=== PATIENT | male | born 1940 | race Caucasian/White ===

== ENCOUNTER 2016-07-05 17:43 | Inpatient (IN) | payer MEDICARE ==
[~2016-07-05] VITALS: Ht 185.4 cm; Wt 129.3 kg
[~2016-07-05 17:43] MED LIST: ASPIRIN EC81 M1 PO; BRILINTA90 MG PO; BROVANA15 MCG/2 M INH; BYSTOLIC10 MG PO; CALAN SR240 MG PO; COMBIVENT RESPIM4 GM INH; COZAAR50 MG PO; DIABETA5 MG PO; EFFIENT10 MG PO; ELIQUIS5 MG PO; FLOMAX0.4 MG PO; GLIPIZIDE10 MG PO; GLUCOPHAGE1000 MG PO; KLOR-CON M2020 MEQ PO; LANOXIN250 MCG PO; LASIX20 MG PO; LASIX40 MG PO; LEVEMIR100 U/M1 SC; LEVEMIR100 U/M1 SQ; MELATONIN 3 MG1 TAB PO; METOLAZONE5 MG PO; NEURONTIN 300300 MG PO; NEURONTIN600 MG PO; NITROSTAT0.4 MG SL; PERCOCET 10/3251 TA1 PO; PRAVACHOL20 MG PO; PREVACID30 MG; PREVACID30 MG PO; PROSCAR5 MG PO; PULMICORT0.5 MG/21 UPD; SINGULAIR10 MG PO; SYNTHROID300 MCG PO; VERAPAMIL HCL40 MG PO; Zaroxolyn PO
[2016-07-05 18:36] LABS: BASOPHILS 0.2 % (0.0-2.0); EOSINOPHILS 3.2 % (0-7); HEMOGLOBIN 9.9 g/dL (13.5-17.5); IMMATURE GRANULOCYTES 1.3 % (0-5); LYMPHOCYTES 10.6 % (15-50); MCH 24.4 pg (26.0-34.0); MCV 81.3 fL (80.0-100.0); MEAN PLATELET VOLUME 10.4 fL (7.4-10.4); MONOCYTES 10.6 % (2-11); NEUTROPHILS 74.1 % (40-80); PLATELET COUNT 102 10x3/uL (130-400); RBC 4.06 10x6/uL (4.20-6.10); RDW 18.2 % (11.5-14.5); WBC 5.4 10x3/uL (4.8-10.8)
[2016-07-05 18:57] LABS: ALBUMIN 2.9 g/dL (3.4-5.0); ANION GAP 11.1 mmol/L (8-16); BILIRUBIN - TOTAL 0.32 mg/dL (0.2-1.3); CALCIUM 8.8 mg/dL (8.5-10.1); CARBON DIOXIDE 30.1 mmol/L (21.0-32.0); CREATININE - SERUM 1.1 mg/dL (0.6-1.3); POTASSIUM - SERUM 5.2 mmol/L (3.5-5.1)
--- NOTE | 2016-07-05 22:51 | NUR ---
RECEIVED TO 2124 FROM ER VIA WHEELCHAIR, AAOX3, SKIN WARM AND DRY, RESP UNLABORED, IV PATENT TO LEFT AC, O2@3LNC, AT BEDSIDE, NO DISTRESS NOTED
[2016-07-05] MEDS ORDERED: CALAN SR240 MG PO (23:07)
[2016-07-05] MEDS ORDERED: CATAPRES0.1 MG PO (23:10)
[2016-07-06] VITALS: BP 193/99
--- NOTE | 2016-07-06 00:45 | NUR ---
VERY ANXIOUS AND UPSET, BP ELEVATED 199/99, DR RUBEN GARVIN
--- NOTE | 2016-07-06 00:59 | NUR ---
PT IN BED WATCHING TELEVISION, ANXIOUS ABOUT GETTING MEDICATIONS PER SPECIALTY DEVELOPMENT CONSULTANT, NO S&S OF ACUTE DISTRESS NOTED. PT SILENT AND RESTING UPON ENTERING ROOM. USING HOME CPAP UNIT WITH 3L O2. BED LOW AND LOCKED, CALL LIGHT IN REACH, WILL CONTINUE TO MONITOR.
--- NOTE | 2016-07-06 02:30 | NUR ---
UNABLE TO REACH DR MIRANDA, ER DR DOUGLASS NOTIFIED AND ORDERS RECIEVED FOR HOME BP MEDS AND ATIVAN FOR ANXIETY
--- NOTE | 2016-07-06 03:15 | NUR ---
MEDICATIONS GIVEN FOR BP AND ANXIETY, WILL MONITOR
[2016-07-06 03:26] VITALS: BP 193/99; BMI 37.6
[2016-07-06 05:11] LABS: BASOPHILS 0.2 % (0.0-2.0); EOSINOPHILS 2.7 % (0-7); HEMATOCRIT 31.1 % (42.0-54.0); HEMOGLOBIN 9.4 g/dL (13.5-17.5); IMMATURE GRANULOCYTES 1.2 % (0-5); LYMPHOCYTES 8.6 % (15-50); MCH 24.2 pg (26.0-34.0); MCHC 30.2 g/dL (31.0-37.0); MCV 80.2 fL (80.0-100.0); MEAN PLATELET VOLUME 10.6 fL (7.4-10.4); MONOCYTES 11.9 % (2-11); NEUTROPHILS 75.4 % (40-80); PLATELET COUNT 100 10x3/uL (130-400); RBC 3.88 10x6/uL (4.20-6.10); RDW 17.9 % (11.5-14.5); WBC 5.2 10x3/uL (4.8-10.8)
[2016-07-06 05:28] LABS: CALC OSMOLALITY 274 mosm/kg (275-300); CALCIUM 8.7 mg/dL (8.5-10.1); CARBON DIOXIDE 30.1 mmol/L (21.0-32.0); CHLORIDE - SERUM 98 mmol/L (98-107); POTASSIUM - SERUM 5.3 mmol/L (3.5-5.1); SODIUM 134 mmol/L (136-145); UREA NITROGEN 19 mg/dL (7-18); eGFR NON AFRICAN AMERICAN 77 mL/min (90-120)
[2016-07-06 05:32] LABS: GLUCOSE 193 mg/dL (74-106)
--- NOTE | 2016-07-06 06:43 | NUR ---
RESTING QUIETLY IN BED, NO DISTRESS NOTED
--- NOTE | 2016-07-06 07:41 | NUR ---
FARZANEH INFORMED OF BLOOD SUGAR. HE REFUSES HUMALOG. STATES THAT HE BECOMES SYMPTOMATIC FOR HYPOGLYCEMIA IF HIS SUGARS GET DOWN IN THE 120'S. HE WANTS ONLY THE LEVIMER.
--- NOTE | 2016-07-06 07:50 | NUR ---
PATIENT IS AWAKE AND ALERT, SITTING UP HI FOWLERS IN HIS BED, AT THE BEDSIDE. HE STATE STHAT HE "HAD A ROUGH NIGHT". HE IS ABLE TO MAKE HIS IMMEDIATE NEEDS KNOWN. ASSESSMENT COMPLETE, HE HAS PITTING EDEMA TO BLE, MORE PRONOUNCED ON THE LEFT SIDE. 3+ PITTING EDEMA IN THE LEFT FOOT. GENERALIZED EDEMA NOTED IN BUE. HE IS PASTY WITH DIMINISHED LUNG SOUNDS IN THE LOWER 2 THIRDS OF EACH LUNG. HE HAS BEEN WEARING THE CPAP WHILE ASLEEP.
--- NOTE | 2016-07-06 08:00 | NUR ---
850CC OF URINE EMPTIED FROM HIS URINALS. IT IS BRIGHT YELLOW. HE IS ANXIOUS TO KNOW HIS PLAN FOR THE DAY. BREAKFAST HAS BEEN DELIVERED AND HE IS LESS ANXIOUS ABOUT HIS IMMEDIATE NEEDS. CHANGED HIS PILLOW CASES AND THE PINK PAD UNDER HIM. THEY ARE WET WITH PERSPIRATION. TURNED HIS AIR DOWN. HE STATES THAT THESE SWEATS ARE NORMAL FOR HIM.
[2016-07-06 08:31] VITALS: BP 114/75
--- NOTE | 2016-07-06 08:34 | NUR ---
PATIENT KELP GATHERER LIGHT REQUESTING URINALS EMPTIED AND ADJUSTMENTS FOR COMFORT. HE IS ON 3 LITERS O2 AND STATES THAT HE MAY NEED TO BE PLACED ON CPAP SOON.
--- NOTE | 2016-07-06 09:53 | NUR ---
PATIENT RESTING EITH CPAP ON WHEN I ENTER. LIGHTS OUT. HE AWOKE EASILY TO MY ENTRY. ORAL MEDICATIONS DISCUSSED PREPARED. HE TOOK THEM WITHOUT RESERVATIONS. WILL GIVE LEVIMIRE WHEN AVAILABLE FROM PHARMACY
--- NOTE | 2016-07-06 11:24 | NUR ---
PATIENT SITTING UP IN BID HI FOWLERS. NC INFUSING O2 AT 3LPM. MEDICATION TAKEN AFTER EXPLANATION FOR ANNITA. STATES THAT HE DOES SUFFER FROM CHRONIC CONSTIPATION.
[2016-07-06 11:42] VITALS: BP 168/95
[2016-07-06 13:01] VITALS: Ht 185.4 cm; Wt 129.3 kg
--- NOTE | 2016-07-06 15:27 | NUR ---
RATIONALE FOR SCD'S EXPLAINED. REFUSED SCD'S
[2016-07-06 15:51] VITALS: BP 122/66; BP 128/68
--- NOTE | 2016-07-06 18:40 | NUR ---
FARZANEH SITTING UP IN THE BEDSIDE CHAIR. LINENS COMPLETELY CHANGED. HIS IV TO THE LEFT AC REMAINS PATENT TO SALINE FLUSH.
[2016-07-06 19:00] VITALS: BP 136/65
--- NOTE | 2016-07-06 19:03 | NUR ---
SITTING UP IN CHAIR AT BEDSIDE, AAOX3, SKIN WARM AND DRY, RESP UNLABORED, IV PATENT TO LEFT AC, O2@3LNC, NO DISTRESS NOTED, AT BEDSIDE
[2016-07-07] VITALS (13 sets, daily range): BP systolic 113–170; BP diastolic 59–82
--- NOTE | 2016-07-07 01:52 | NUR ---
PT SLEEPING. HAD AN IV RESITED THIS NIGHT, 4TH TRY SUCCESSFUL WITH 22G CATHETER IN THE RIGHT FOREARM, FLUSHING WELL AND NO SIGNS OF INFILTRATION NOTED. DRESSING ADHERED TO SKIN AND SWAB CAP IN PLACE. PT USING HOME CPAP MACHINE WITH 3L O2 CONNECTED. NO S&S OF DISTRESS NOTED AT THIS TIME, UNLABORED BREATHING. BED LOW AND LOCKED, CALL LIGHT IN REACH. WILL CONTINUE TO MONITOR.
[2016-07-07 06:49] LABS: BASOPHILS 0 % (0.0-2.0); EOSINOPHILS 0 % (0-7); HEMATOCRIT 31.5 % (42.0-54.0); HEMOGLOBIN 9.7 g/dL (13.5-17.5); IMMATURE GRANULOCYTES 1.6 % (0-5); LYMPHOCYTES 7.3 % (15-50); MCH 24.6 pg (26.0-34.0); MCHC 30.8 g/dL (31.0-37.0); MCV 79.7 fL (80.0-100.0); MEAN PLATELET VOLUME 11.1 fL (7.4-10.4); MONOCYTES 4.5 % (2-11); NEUTROPHILS 86.6 % (40-80); PLATELET COUNT 107 10x3/uL (130-400); RBC 3.95 10x6/uL (4.20-6.10); RDW 17.9 % (11.5-14.5); WBC 4.4 10x3/uL (4.8-10.8)
[2016-07-07 07:14] LABS: APTT 33.8 SECONDS (22.8-39.4); INR 1.08 (0.85-1.17); PROTIME 13.9 SECONDS (11.6-15.0)
[2016-07-07 07:19] LABS: BILIRUBIN - TOTAL 0.5 mg/dL (0.2-1.3); CALCIUM 8.6 mg/dL (8.5-10.1); CARBON DIOXIDE 31.1 mmol/L (21.0-32.0); CHOL - HDL RATIO 3.2 ratio (2.3-4.9); CREATININE - SERUM 1.2 mg/dL (0.6-1.3); MAGNESIUM - SERUM 1.3 mg/dL (1.8-2.4); POTASSIUM - SERUM 5.1 mmol/L (3.5-5.1); PROTEIN - SERUM 7.5 g/dL (6.4-8.2); THYROID STIMULATING HORMONE 1.25 uIU/mL (0.36-3.74)
--- NOTE | 2016-07-07 08:00 | NUR ---
INTRODUCED MYSELF TO PT PRIMARY RN FOR TODAYS SHIFT. PT IS ALERT AND ORIENTED RESTING QUIETLY IN BED WITH AT BEDSIDE. PT CURRENTLY NPO FOR PROCEDURE LATER TODAY. SHIFT ASSESSMENT COMPLETED. RR NONLABORED WITH NC @3L IN PLACE. R.FA PIV WITH MONICA CDI AND SWAB CAPS IN USE. EMPTIED BEDSIDE URINAL OF 325ML CLEAR YELLOW URINE. PT DENIES ANY FURTHER NEEDS AT THIS TIME. CL IN REACH. WILL CPOC.
--- NOTE | 2016-07-07 09:13 | CN ---
PATIENT NAME:ANTONIO LOPEZ MEDICAL RECORD: [id number] : 40 LOCATION:. D.2125 ADMIT DATE: 07/05/16 ACCOUNT: [id number] CONSULTING PHYSICIAN: DALE MASTERS MD REFERRING PHYSICIAN: ARAVIND CR MD DATE OF CONSULTATION: 07/06/2016 CONSULT REQUESTING PHYSICIAN: Aravind Cr MD REASON FOR CONSULTATION: Right-sided pleural effusion and pneumonia. HISTORY OF PRESENT ILLNESS: Mr. Lopez is a 75-year-old gentleman who has worsening shortness of breath. He was seen in the [facility]. Chest x-ray was done and he was told that he needs to be hospitalized. He denies any fever or chill. There are no night sweats. He has chest pain when he coughs, especially on the right side. He also hears himself wheezing. He has worsening swelling of the lower extremities. There is also some orthopnea and PND. The patient does have a history of obstructive sleep apnea. He is using his CPAP machine regularly. PAST MEDICAL HISTORY: 1. COPD. 2. Obstructive sleep apnea. 3. History of sarcoidosis. 4. History of coronary artery disease. 5. History of atrial fibrillation. 6. Congestive heart failure with diastolic dysfunction. 7. History of pneumonia. 8. History of right-sided pleural effusion status post thoracentesis. ALLERGIES: HE IS ALLERGIC TO SOTALOL, PLAVIX, DEMEROL, PNEUMOCOCCAL VACCINE AND COUMADIN. PRESENT MEDICATIONS: On Elias Borges Ur[employer]ch is reviewed. PERSONAL AND SOCIAL HISTORY: The patient has history of smoking more than [id number]. He is a nondrinker. FAMILY HISTORY: Noncontributory. PHYSICAL EXAMINATION: GENERAL: Now, the patient is lying comfortably in bed. He is not in acute distress. VITAL SIGNS: The blood pressure is 168/95, pulse is 77, respirations 18, temperature 98.4, and SPO2 is 98% on 3 liters nasal cannula. HEENT: Conjunctivae pink, sclerae nonicteric. NECK: Supple, no JVD. CHEST: Excursion is minimal on both sides. There are decreased breath sounds on the right side, dullness on percussion. There are also crackles. HEART: Rate and rhythm regular, normal sound, no murmur. ABDOMEN: Soft. Bowel sounds present. No hepatosplenomegaly. RECTAL: Deferred. EXTREMITIES: No cyanosis, no clubbing. There are 2+ pedal edema. SKIN: Warm, normal turgor. CENTRAL NERVOUS SYSTEM: The patient is awake and alert. There is no obvious CONSULT REPORT [id number] ANTONIO LOPEZ cranial nerve abnormality. The gait was not tested. CHEST RADIOGRAPH: There is right-sided pleural effusion. Possible underlying infiltrate. LABORATORY DATA: CBC: WBC 5.2, hemoglobin 9.4, hematocrit 31.1, the platelet count is 100. Chemistry: Sodium 134, potassium 4.3, BUN is 19, creatinine is 1. The BNP 2759. IMPRESSION: 1. Acute exacerbation of chronic obstructive pulmonary disease. 2. Right-sided pleural effusion, possible parapneumonic. 3. Congestive heart failure with diastolic dysfunction. 4. Obstructive sleep apnea on CPAP. 5. History of atrial fibrillation. 6. History of sarcoidosis diagnosed years ago and that is on remission. 7. History of coronary artery disease. 8. History of hypertension. RECOMMENDATION: 1. Continue his Zaroxolyn and Bumex. Supplemental oxygen. Continue Levaquin. I will add Rocephin. Start on Brovana/budesonide nebulizer. Continue albuterol/ipratropium nebulizer. 2. Methylprednisolone IV. 3. We will check the decubitus film on the right. If there is significant pleural fluid will proceed with thoracentesis. The labs and order has been ordered for thoracentesis. Dr. Cr, once again thanks for involving me in the care of Mr. Lopez. TRANSINT:[id number] Voice Confirmation ID: [id number] DOCUMENT ID: [id number] DALE MASTERS MD at 0913 CC: ARAVIND CR MD [id number] DICTATION DATE: 07/06/16 1443 CARRIAGE FEEDER: 07/06/16 1508 ADM IN [id number] [place] [address]
--- NOTE | 2016-07-07 09:30 | NUR ---
PT LEAVING FOR PROCEDURE WITH IR STAFF. WILL CTM.
--- NOTE | 2016-07-07 10:30 | NUR ---
PT BACK IN ROOM FROM THORENCENTESIS. DRSG TO R.FLANK CDI. VSS AND BEING RECORDED PER PROTOCOL. PT DENIES ANY CURRENT PAIN OR NEEDS. CL IN REACH, AT BEDSIDE. WILL CPOC.
--- NOTE | 2016-07-07 11:28 | NUR ---
FSBS 348. PT REC'D 20 UNITS PER SS INSULIN. PT RESTING WITH AT BEDSIDE. RR NONLABORED WITH NC @2L IN PLACE. PT WANTING TO GET SOME REST AND HAVE HIS CPAP ON. ASSISTED PT WITH IT. PT NOW RESTING QUIETLY WITH MAG INFUSING VIA R.FA PIV. DRSG CDI AND SWAB CAPS IN USE. NO FURTHER NEEDS NOTED AT THIS TIME. CL IN REACH. WILL CTM.
[2016-07-07 12:35] LABS: PROTEIN - BODY FLUID 3.3 G/DL
--- NOTE | 2016-07-07 14:20 | NUR ---
INITIATED PTS IVPB ROCEPHIN. INFUSING OVER 30MINS VIA R.FA PIV. DRSG CDI AND SWAB CAPS IN USE. EMPTIED BEDSIDE URINAL OF 325ML CLEAR YELLOW VOID. PT VOICED THANKS AND DENIES ANY FURTHER NEEDS AT THIS TIME. CL IN REACH. WILL CPOC.
[2016-07-07 14:26] LABS: LYMPH - BF 67 %; MACROPHAGES BF 16 %; MESOTHELIALS BF 1 %; NEUT - BF 16 %
--- NOTE | 2016-07-07 16:00 | NUR ---
PT RESTING QUIETLY IN BED WITH EYES CLOSED. RR NONLABORED WITH NC @3L IN PLACE. NO S/S OF DISTRESS OR ANY CURRENT NEEDS NOTED AT THIS TIME. CL IN REACH. WILL CPOC.
--- NOTE | 2016-07-07 17:12 | NUR ---
PT PULLED OUT HIS R.FA PIV. INSERTED NEW 22 GUAGE X3 ATTEMPTS. NEW IV IN HIS L.HAND. DRSG CDI AND SWAB CAPS IN USE. PT IS SITTING UP EATING HIS DINNER TRAY. FSBS 398 AND PT REC'D 24 UNITS PER SS INSULIN. PT RESTING AND DENIES ANY FURTHER NEEDS AT THIS TIME. CL IN REACH, BED IN LOWEST, SIDE RAILS X2. WILL CPOC.
--- NOTE | 2016-07-07 19:35 | NUR ---
RESUMED CARE OF PT, LYING IN BED RESPIRATIONS EVEN AND UNLABORED ON 3LPM VIA NC. LEFT HAND SALINE LOCKED. CALL LIGHT IN REACH. NO NEEDS NOTED AT THIS TIME. AT BEDSIDE. SEE NURSE ASSESSMENT. WILL CONTINUE TO MONITOR.
[2016-07-08] VITALS: BP 165/76
--- NOTE | 2016-07-08 01:30 | NUR ---
LYING IN BED, CALL LIGHT IN REACH. WILL CONTINUE WITH PLAN OF CARE.
[2016-07-08 04:00] VITALS: BP 145/74
--- NOTE | 2016-07-08 05:22 | NUR ---
AM MEDS PASSED, NO CHANGES FROM PREVIOUS ASSESSMENT. FSBS OBTAINED PER PT REQUEST 290. REFUSES HUMALOG AT THIS TIME, STATES "I'M ALREADY TAKING LEVEMIR, GLIPIZIDE, AND METFORMIN. I DON'T LIKE TAKING HUMALOG, IT MAKES ME NERVOUS." TEACHING ON NEED FOR HUMALOG DUE TO SOLUMEDROL. STATES HE DOESN'T WANT IT THIS MORNING.
[2016-07-08 05:58] LABS: BASOPHILS 0 % (0.0-2.0); EOSINOPHILS 0 % (0-7); HEMATOCRIT 32.8 % (42.0-54.0); HEMOGLOBIN 10.2 g/dL (13.5-17.5); IMMATURE GRANULOCYTES 0.5 % (0-5); LYMPHOCYTES 4.2 % (15-50); MCH 24.7 pg (26.0-34.0); MCHC 31.1 g/dL (31.0-37.0); MCV 79.4 fL (80.0-100.0); MEAN PLATELET VOLUME 11.1 fL (7.4-10.4); MONOCYTES 6.5 % (2-11); NEUTROPHILS 88.8 % (40-80); PLATELET COUNT 125 10x3/uL (130-400); RBC 4.13 10x6/uL (4.20-6.10); RDW 17.6 % (11.5-14.5)
[2016-07-08 06:02] LABS: WBC 8.2 10x3/uL (4.8-10.8)
[2016-07-08 06:40] LABS: ALBUMIN 2.9 g/dL (3.4-5.0); BILIRUBIN - TOTAL 0.36 mg/dL (0.2-1.3); CALCIUM 9.1 mg/dL (8.5-10.1); CARBON DIOXIDE 31.9 mmol/L (21.0-32.0); CREATININE - SERUM 1.3 mg/dL (0.6-1.3); PHOSPHOROUS 4.3 mg/dL (2.5-4.9); POTASSIUM - SERUM 4.9 mmol/L (3.5-5.1); PROTEIN - SERUM 7.7 g/dL (6.4-8.2)
[2016-07-08 06:42] LABS: MAGNESIUM - SERUM 1.8 mg/dL (1.8-2.4)
--- NOTE | 2016-07-08 07:26 | NUR ---
INTRODUCED MYSELF TO PT A PRIMARY RN FOR TODAYS SHIFT. PT IS ALERT AND RESTING QUIETLY IN BED WATCHING TV AND RECIEVING BREATHING TX. RR NONLABORED WITH NC @2L IN PLACE. PT STATES HE SLEPT WELL AND IS FEELING ALRIGHT THIS AM. COMPLAINS OF SLIGHT SORE THROAT SO I PROVIDED HIM WITH SOME COUGH DROPS. PT VOICED THANKS. PT HAS L.HAND PIV WITH DRSG CDI AND SWAB CAPS IN USE. PT HAS A R.FLANK DRSG CDI NO S/S OF HEMATOMA OR BLEEDING NOTED. PT DENIES ANY CURRENT PAIN OR NEEDS. CL IN REACH. WILL CPOC.
[2016-07-08 08:00] VITALS: BP 144/68
--- NOTE | 2016-07-08 11:35 | NUR ---
FSBS 444. TREATED PT WITH 28UNITS OF SS INSULIN. ORDERED A STAT SERUM GLUCOSE AND WILL CONTINUE TO MONITER CLOSELY. PT HAS BEEN REFUSING HIS SS INSULIN FROM ANY OTHER WORKERS. I ENCOURAGED HIM TO TAKE IT ORDERED BUT HE STATES "I DONT TRUST THEM" PT IS VERY WEARY ABOUT TAKING HUMALOG AND DROPPING HOWEVER PT IS CONSTANTLY HIGH.
[2016-07-08 12:00] VITALS: BP 149/51
--- NOTE | 2016-07-08 13:04 | NUR ---
Patient Name: ANTONIO LOPEZ Admission Status: ER Accout number: [id number] Admission Date: 07-05-2016 : 1940 Admission Diagnosis:ACUTE ON CHRONIC DIASTOLIC (CONGESTIVE) HEART FAILURE Attending: GEORGE Current LOS: 3 Anticipated DC Date: 07-09-2016 Planned Disposition: Home with Home Health Primary Insurance: HUMANA CHOICE PPO MCR ADVANT Discharge Planning Comments: CM MET WITH PATIENT AND (MARGAUX) REGARDING D/C NEEDS AND PLANS. PATIENT STATED THERE ARE 5 STEPS W/RAILS TO ENTER HOME AND NO STAIRS INSIDE. PATIENT IS INDEPENDENT WITH HIS CARE AND HAS A WALKER, WHEELCHAIR, OXYGEN, PORTABLE O2, BS COMMODE, AND SHOWER CHAIR AT HOME. PATIENTS PCP IS DR. MIRANDA AND PHARMACY IS [facility]. PATIENT HAS NOT HAD HOME HEALTH BEFORE BUT HAS SIGNED THE [employer] FORM FOR [facility]. [facility] DOES NOT HAVE A CONTRACT WITH [facility] UNTIL July AND PATIENT AND AGREE TO WAIT UNTIL THE FOR HOME HEALTH. [facility] IS AWARE THAT PATIENT WANTS THEM AND WILL CALL THEM ON THE TO SET UP AN APPOINTMENT. REFERRAL WILL BE SENT. CM WILL CONTINUE TO FOLLOW PATIENT WITH D/C NEEDS AND PLANS. PCP DR. RUBEN ARBOLEDA [facility] [phone] CAROL () [phone] OR [phone] Stonemason: Meseret Martinez Is the patient Alert and Oriented? Yes 0 * How many steps to enter\exit or inside your home? 5 W/RAILS 0 * PCP DR. MIRANDA 0 * Pharmacy [facility] 0 * Preadmission Environment Home with Family 0 * ADLs Independent 0 * Equipment Bedside Commode Nebulizer Oxygen Shower Chair Walker Wheelchair 0 * List name and contact numbers for known caregivers / representatives who currently or will assist patient after discharge: MARGAUX () [phone] OR [phone] * Community resources currently utilized None 0 * Additional services required to return to the preadmission environment? Yes 0 * Can the patient safely return to the preadmission environment? Yes 0 * Has this patient been hospitalized within the prior 30 days at any hospital? No 0 Grand Total: 0
--- NOTE | 2016-07-08 13:53 | NUR ---
INITIATED IVPB ROCEPHIN INFUSING VIA L.HAND PIV TO BE INFUSED OVER 30 MINS. PT DENIES ANY CURRENT PAIN OR FURTHER NEEDS. CL IN REACH. PT RESTING QUIETLY IN BED WITH CPAP ON. WILL CPOC.
[2016-07-08 16:00] VITALS: BP 137/56
--- NOTE | 2016-07-08 16:44 | NUR ---
FSBS 290. PT REC'D 16UNITS OF SS INSULIN. PT REQUESTED AND PROVIDED WITH PRN PAIN MEDICATION FOR NECK/BACK ALL OVER PAIN. PT SITTING UP IN BED RESTING QUIETLY WAITING ON HIS DINNER TRAY. NO FURTHER NEEDS AT THIS TIME. CL IN REACH. WILL CPOC.
[2016-07-08 19:10] LABS: AFB SPECIMEN PROCESSING Concentration (())
--- NOTE | 2016-07-08 20:00 | NUR ---
PT RESTING IN BED. ALERT/ORIENTED. O2 @ 2L/NC WITH NONLABORED RESPIRATIONS. SLAINE LOCK TO LEFT HAND. DRESSING TO RIGHT FLANK FROM THORACENTESIS ON TUESDAY. ASSESSMENT COMPLETED. REVIEW PLAN OF CARE.
[2016-07-08 21:18] VITALS: BP 134/70
[2016-07-09 01:12] VITALS: BP 152/75
[2016-07-09 05:01] VITALS: BP 130/78
[2016-07-09 06:05] LABS: ANION GAP 11.1 mmol/L (8-16); CALCIUM 9.5 mg/dL (8.5-10.1); CARBON DIOXIDE 34.4 mmol/L (21.0-32.0); CREATININE - SERUM 1.3 mg/dL (0.6-1.3); POTASSIUM - SERUM 4.5 mmol/L (3.5-5.1)
[2016-07-09 06:06] LABS: BASOPHILS 0 % (0.0-2.0); EOSINOPHILS 0 % (0-7); HEMATOCRIT 33.3 % (42.0-54.0); HEMOGLOBIN 10.1 g/dL (13.5-17.5); IMMATURE GRANULOCYTES 0.7 % (0-5); LYMPHOCYTES 6.3 % (15-50); MCH 24.1 pg (26.0-34.0); MCHC 30.3 g/dL (31.0-37.0); MCV 79.5 fL (80.0-100.0); MEAN PLATELET VOLUME 10.3 fL (7.4-10.4); MONOCYTES 10.9 % (2-11); NEUTROPHILS 82.1 % (40-80); PLATELET COUNT 129 10x3/uL (130-400); RBC 4.19 10x6/uL (4.20-6.10); RDW 17.5 % (11.5-14.5); WBC 8.5 10x3/uL (4.8-10.8)
--- NOTE | 2016-07-09 07:00 | NUR ---
PT SITTING UP IN BED DENIES NEEDS WILL CONT TO MONITOR.
[2016-07-09 08:00] VITALS: BP 135/59
[2016-07-09 11:18] LABS: FUNGUS STAIN Final report (())
[2016-07-09 12:00] VITALS: BP 130/69
--- NOTE | 2016-07-09 13:53 | NUR ---
Nutrition follow-up: Diet: ADA consistent CHO PO intake 100% of meals +BM Wt: 285# PO intake is good at this time. RDN following.
--- NOTE | 2016-07-09 14:56 | NUR ---
PT SITTING UP IN BED SLEEPING NO S/S DISTRESS. PT WITH NO COMPLAINTS OF ANYTHING TODAY. DENIES NEEDS AT THIS TIME WILL CONT TO MONITOR.
[2016-07-09 16:00] VITALS: BP 118/51
[2016-07-09] MEDS ORDERED: [UNRECOGNIZED DRUG - OTHER] PO (16:14)
[2016-07-09] MEDS ORDERED: ATIVAN1 MG PO (16:36)
[2016-07-09] MEDS ORDERED: ZOLOFT50 MG PO (16:37)
--- NOTE | 2016-07-09 18:09 | NUR ---
WENT OVER DC PAPERWORK WITH PT PT VERBALIZES UNDERSTANDING. DC PIV WITH CATH TIP INTACT. WHEELED PT OUT TO FRONT ENTRANCE.
[2016-07-09] MEDS ORDERED: LEVAQUIN750 MG PO (18:21)
[2016-07-09] MEDS ORDERED: STERAPRED DS 1010 MG PO (18:25)
--- NOTE | 2016-07-09 18:26 | NUR ---
DR MASTERS ORDERED LEVAQUIN 750 DAILY FOR 5 DAYS AND PREDNISONE DOSE PACK CALLED IN TO [facility] SPOKE TO SELINA. CALLED PT AND TOLD THEM THAT I CALLED IN ADDITIONAL SCRIPTS AND GAVE EDUCATION ON WHAT THEY ARE.
[2016-07-12 11:12] LABS: ANA REFLEX - DIRECT Negative (Negative)
--- NOTE | 2016-07-12 14:16 | EC ---
PATIENT:ANTONIO LOPEZ DATE OF SERVICE: 07/05/16 SEX: M MEDICAL RECORD: [id number] DATE OF : 40 LOCATION:D.M2 D.212 AGE OF PATIENT: 75 ADMISSION DATE: 07/05/16 REFERRING PHYSICIAN: INTERPRETING PHYSICIAN: KAUSHIK CAMARENA MD ECHOCARDIOGRAM REPORT ECHO CHARGES 4 ECHO COMPLETE CLINICAL DIAGNOSIS: R PLUERAL EFFUSION / ELEVATED BNP HX OF PACER,CAD,STENTS ECHOCARDIOGRAPHIC MEASUREMENTS (adult normal given) AC root (d.<3.7cm) 4.1 LV Septum d (<1.2 cm> 2.0 Valve Excursion 1.9 LV Septum (systole) 2.2 Left Atria (s.<4.0cm> 4.2 LVPW d(<1.2cm) 1.8 RV (d.<2.3cm) 4.3 LVPW (sytole) 2.4 LV diastole(<5.6CM) 5.3 MV E-F(>70mm/sec) LV systole 3.4 LVOT Diameter 1.7 MV exc.(>10mm) 1.9 Est.ejection fraction (50-75%) Pericardial Effusion N DOPPLER: LVIT A 43.0 E 114 LA RVSP 50 LVOT 129 AOP1/2T Asc. Ao 183 RVOT 95 RA PA 164 AV Gradient Peak 13.36 AV Mean 6.85 AV Area 1.7 MV Gradient Peak 13.66 MV Mean 4.15 MV Area COMMENTS: Kiln Stoker: Fabrice JUNIOR Box Car Washer:Rhett Schneider TAPE# PACS DATE OF SERVICE: 07/06/2016 Echocardiogram FINDINGS: 1. Left ventricular chamber size is within normal limits. Left ventricular systolic function is normal. Overall ejection fraction estimated at 55%. 2. The left atrium is mildly dilated at 4.2 cm. The right atrium and right ventricle chamber sizes are severely dilated. 3. Valvular structures have normal structure and motion. ECHOCARDIOGRAM REPORT [id number] ANTONIO LOPEZ 4. Doppler interrogation reveals mild mitral regurgitation, moderate tricuspid regurgitation, no other valvular insufficiency or stenosis; however, pulmonary systolic pressure is elevated estimated at 50 mmHg. 5. No evidence of pericardial effusion or left ventricular thrombus. TRANSINT:[id number] Voice Confirmation ID: [id number] DOCUMENT ID: [id number] KAUSHIK CAMARENA MD at 1416 CC: [id number] DICTATION DATE: 07/06/16 1634 SHEET COMBINING OPERATOR: 07/06/16 2016 DIS IN 07/09/16 [id number] [place] [address]
[2016-08-11 07:22] LABS: FUNGUS MYCOLOGY CULTURE Final report (())
[2016-08-31 10:17] LABS: ACID FAST CULTURE Negative (()); ACID FAST SMEAR Negative (())
== END 2016-07-09 18:27 | disposition home or self-care (01) | DRG 291 ==
LOC: D.ER 17:43 → D.M2 21:09
PROVIDERS: Emergency Medicine; Internal Medicine Pulmonary Disease; Specialist; ADMIT Family Medicine
PROC: 0W993ZZ Drainage of Right Pleural Cavity, Percutaneous Approach (ICD-10-PCS; principal; 2016-07-07 09:03)
DX: I11.0 Hypertensive heart disease with heart failure (principal); J18.9 Pneumonia, unspecified organism; J90 Pleural effusion, not elsewhere classified; J44.1 Chronic obstructive pulmonary disease with (acute) exacerbation; J44.0 Chronic obstructive pulmonary disease with (acute) lower respiratory infection; I50.33 Acute on chronic diastolic (congestive) heart failure; G47.33 Obstructive sleep apnea (adult) (pediatric); I48.2 Chronic atrial fibrillation; I25.10 Atherosclerotic heart disease of native coronary artery without angina pectoris; E83.42 Hypomagnesemia; D64.9 Anemia, unspecified; E11.40 Type 2 diabetes mellitus with diabetic neuropathy, unspecified; E03.9 Hypothyroidism, unspecified; Z74.09 Other reduced mobility; K21.9 Gastro-esophageal reflux disease without esophagitis; E66.9 Obesity, unspecified; N40.0 Benign prostatic hyperplasia without lower urinary tract symptoms; F41.8 Other specified anxiety disorders; D69.6 Thrombocytopenia, unspecified; Z95.0 Presence of cardiac pacemaker; Z87.891 Personal history of nicotine dependence

== ENCOUNTER → 2016-10-29 08:44 | Outpatient (CLI) | payer MEDICARE ==
[2016-07-06 13:01] VITALS: BMI 37.6
[~2016-10-29 08:44] MED LIST changes: +ATIVAN1 MG PO; +CATAPRES0.1 MG PO; +LEVAQUIN750 MG PO; +STERAPRED DS 1010 MG PO; +ZOLOFT50 MG PO; +[UNRECOGNIZED DRUG - OTHER] PO
== END | disposition home or self-care (01) ==
LOC: D.RT 10-28 13:00 → D.US 08:44
DX: J44.9 Chronic obstructive pulmonary disease, unspecified (principal); D86.9 Sarcoidosis, unspecified

== ENCOUNTER 2016-11-09 07:32 | Outpatient (CLI) | payer MEDICARE ==
[~2016-11-09] VITALS: Ht 188 cm; Wt 126.8 kg
[2016-11-09] MEDS ORDERED: BUMEX2 MG PO (08:14)
[2016-11-09 08:31] LABS: BASOPHILS 0.2 % (0-2); EOSINOPHILS 2.5 % (0-7); HEMATOCRIT 31.9 % (42.0-54.0); HEMOGLOBIN 9.4 g/dL (13.5-17.5); IMMATURE GRANULOCYTES 0.6 % (0-5); LYMPHOCYTES 11.6 % (15-50); MCH 24.6 pg (26.0-34.0); MCHC 29.5 g/dL (31.0-37.0); MCV 83.5 fL (80.0-100.0); MEAN PLATELET VOLUME 10.8 fL (7.4-10.4); NEUTROPHILS 72.1 % (40-80); PLATELET COUNT 138 10x3/uL (130-400); RBC 3.82 10x6/uL (4.20-6.10); RDW 15.9 % (11.5-14.5); WBC 6.5 10x3/uL (4.8-10.8)
[2016-11-09 08:36] VITALS: BP 118/53; Ht 188 cm; Wt 126.8 kg
[2016-11-09 08:40] LABS: ANION GAP 7.6 mmol/L (8-16); CALCIUM 8.7 mg/dL (8.5-10.1); CARBON DIOXIDE 35.8 mmol/L (21.0-32.0); CREATININE - SERUM 1.2 mg/dL (0.6-1.3); POTASSIUM - SERUM 5.4 mmol/L (3.5-5.1)
[2016-11-09 08:41] LABS: INR 1.06 (0.85-1.17); PROTIME 13.7 SECONDS (11.6-15.0)
[2016-11-09 08:42] LABS: APTT 34.2 SECONDS (22.8-39.4)
[2016-11-09 13:46] LABS: PROTEIN - BODY FLUID 2.4 G/DL
--- NOTE | 2016-11-09 15:45 | NUR ---
PIV DC'D WITH TIP INTACT, PATIENT DRESSING IN PERSONAL CLOTHING, STARTING HOME PORTABLE O2. DISCHARGE INSTRUCTIONS REVIEWED WITH PATIENT AND SPOUSE. PATIENT DISCHARGED HOME VIA WHEELCHAIR TO PRIVATE VEHICLE WITH SPOUSE
[2016-11-10 09:17] LABS: FUNGUS STAIN Final report (())
[2016-11-11 11:18] LABS: ACID FAST SMEAR Negative (()); AFB SPECIMEN PROCESSING Concentration (())
== END 2016-11-09 15:50 | disposition home or self-care (01) ==
LOC: D.OPS 07:32 → D.CT 10:00 → D.OPS 10:00
PROVIDERS: Specialist
DX: J90 Pleural effusion, not elsewhere classified (principal)

== ENCOUNTER 2017-01-11 22:05 | Inpatient (IN) | payer MEDICARE ==
[~2017-01-11] VITALS: Ht 188 cm; Wt 109.1 kg
[~2017-01-11 22:05] MED LIST changes: +BUMEX2 MG PO
[2017-01-11 22:31] LABS: BASOPHILS 0 % (0-2); EOSINOPHILS 1.1 % (0-7); HEMATOCRIT 33.3 % (42.0-54.0); HEMOGLOBIN 9.5 g/dL (13.5-17.5); IMMATURE GRANULOCYTES 0.5 % (0-5); LYMPHOCYTES 10.1 % (15-50); MCH 22.8 pg (26.0-34.0); MCHC 28.5 g/dL (31.0-37.0); MCV 79.9 fL (80.0-100.0); MEAN PLATELET VOLUME 9.8 fL (7.4-10.4); MONOCYTES 14.6 % (2-11); NEUTROPHILS 73.7 % (40-80); PLATELET COUNT 114 10x3/uL (130-400); RBC 4.17 10x6/uL (4.20-6.10); RDW 17.1 % (11.5-14.5); WBC 5.5 10x3/uL (4.8-10.8)
[2017-01-11 23:15] LABS: ALBUMIN 2.7 g/dL (3.4-5.0); ALKALINE PHOSPHATASE 257 U/L (46-116); ALT (SGPT) 16 U/L (10-68); BILIRUBIN - TOTAL 0.53 mg/dL (0.2-1.3); CALCIUM 8.3 mg/dL (8.5-10.1); CARBON DIOXIDE 34.7 mmol/L (21.0-32.0); CHLORIDE - SERUM 95 mmol/L (98-107); CKMB 4.2 U/L (0.0-3.6); CREATINE KINASE 120 UL (21-232); CREATININE - SERUM 1.5 mg/dL (0.6-1.3); PRO BNP 5496 pg/mL (0-450); SODIUM 132 mmol/L (136-145); TROPONIN-I 0.036 ng/mL (0.000-0.060); UREA NITROGEN 53 mg/dL (7-18); eGFR NON AFRICAN AMERICAN 48 mL/min (90-120)
[2017-01-11 23:16] LABS: CALC OSMOLALITY 286 mosm/kg (275-300); GLUCOSE 234 mg/dL (74-106)
[2017-01-11 23:27] LABS: POTASSIUM - SERUM 7.4 mmol/L (3.5-5.1)
--- NOTE | 2017-01-12 02:52 | NUR ---
RECEIVED FROM ICU VIA STRECHER, IV-LAC-SL, O2-4L,K+3.7 WILL GIVE KAYEXALA ORDER, BED IS LOW, SRX2, CALL LIGHT IN REACH, WILL CONTINUE TO MONITOR
[2017-01-12 03:48] VITALS: BP 111/60; BMI 35.9
--- NOTE | 2017-01-12 04:15 | NUR ---
REPORT RECIEVED FROM CONSTANZA RICARDO @ 6183. ADMISSIONS ASSESSMENT COMPLETE, PLEASE SEE FLOW SHEETS FOR DETAILS. DENIES PAIN ATT. AT BEDSIDE. PT USING HOME CPCP MACHINE THAT HIS SET UP PER CONSTANZA RICARDO. DENIES PAIN/NEEDS ATT. BED LOW AND LOCKED, CALL LIGHT IN REACH. WILL CPOC.
[2017-01-12 05:12] VITALS: BP 111/60
[2017-01-12 05:25] LABS: BASOPHILS 0.2 % (0-2); EOSINOPHILS 1.1 % (0-7); HEMATOCRIT 31.2 % (42.0-54.0); HEMOGLOBIN 9.1 g/dL (13.5-17.5); IMMATURE GRANULOCYTES 0.2 % (0-5); LYMPHOCYTES 10.1 % (15-50); MCH 22.9 pg (26.0-34.0); MCHC 29.2 g/dL (31.0-37.0); MCV 78.6 fL (80.0-100.0); MEAN PLATELET VOLUME 11.1 fL (7.4-10.4); MONOCYTES 13.4 % (2-11); PLATELET COUNT 118 10x3/uL (130-400); RBC 3.97 10x6/uL (4.20-6.10); RDW 17.1 % (11.5-14.5); WBC 5.4 10x3/uL (4.8-10.8)
[2017-01-12 05:59] LABS: CALC OSMOLALITY 282 mosm/kg (275-300); CALCIUM 8.2 mg/dL (8.5-10.1); CHLORIDE - SERUM 95 mmol/L (98-107); CREATINE KINASE 108 UL (21-232); CREATININE - SERUM 1.4 mg/dL (0.6-1.3); GLUCOSE 195 mg/dL (74-106); SODIUM 131 mmol/L (136-145); TROPONIN-I 0.039 ng/mL (0.000-0.060); UREA NITROGEN 55 mg/dL (7-18); eGFR NON AFRICAN AMERICAN 52 mL/min (90-120)
--- NOTE | 2017-01-12 06:18 | NUR ---
RECIEVED CRITICAL HIGH VALUES OF POTASSIUM AT 7.0. PAGED DR DEGROOT.
--- NOTE | 2017-01-12 06:32 | NUR ---
SPOKE WITH DR DEGROOT, NEW ORDERS RECIEVED. NS @ 30ML/HR, ELEVATE LEGS, LASIX 20MG X1, AND KAYEXELATE 30MG X1 WITH A REDRAW IN 6 HOURS.
--- NOTE | 2017-01-12 07:18 | NUR ---
PT SITTING UP IN BED BILAT LEGS ELEVATED. DENIES OTHER NEEDS WILL CONT TO MONITOR
--- NOTE | 2017-01-12 09:30 | NUR ---
STILL WAITING ON BUMEX DRIP FROM PHARM
[2017-01-12 09:40] VITALS: BP 130/56
--- NOTE | 2017-01-12 09:59 | NUR ---
SPOKE WITH DR DEGROOT ABOUT PT. SHE WAS WANTING AN UPDATE WITH PT KADAVID AND K LAB THAT SHE ORDERED THIS AM. LET HER KNOW THAT ORDERS HAVE BEEN FULFILLED AND LAB WILL BE REDRAWN AT 1400. ALSO LET HER KNOW THAT CARDIOLOGY STARTED BUMEX DRIP. NO OTHER QUESTIONS WILL CONTACT PHYSICIAN FOR ANY OTHER CONCERNS.
[2017-01-12 11:16] LABS: CKMB 3.4 U/L (0.0-3.6); CREATINE KINASE 102 UL (21-232); TROPONIN-I 0.031 ng/mL (0.000-0.060)
[2017-01-12 12:25] VITALS: BP 129/57
[2017-01-12 12:53] VITALS: Ht 188 cm; Wt 109.1 kg
--- NOTE | 2017-01-12 14:44 | NUR ---
PLACED ON OXIMIXER AT 6 LITERS
[2017-01-12 16:29] VITALS: BP 132/57
[2017-01-12 16:39] LABS: CKMB 3.3 U/L (0.0-3.6); CREATINE KINASE 109 UL (21-232); TROPONIN-I 0.023 ng/mL (0.000-0.060)
[2017-01-12 17:04] LABS: HEMOGLOBIN A1C 8.6 % (4.8-6.0)
--- NOTE | 2017-01-12 17:38 | NUR ---
PT CLEANED UP FOR INC BM AGAIN. PT DENIES ANY NEEDS AT BEDSIDE. WILL CONT TO MONITOR
[2017-01-12 19:00] VITALS: BP 131/62
--- NOTE | 2017-01-12 19:33 | NUR ---
RECEIVED REPORT, WILL ASSUME CARE OF PT, PT RECEIVING BREATHING TREATMENT, DENIES ANY NEEDS AT THIS TIME, BED IS LOW, SRX2, CALL LIGHT IN REACH, WILL CONNTINUE PLAN OF CARE
--- NOTE | 2017-01-12 21:43 | NUR ---
MADE SURE BUMEX AND MAXPINE ARE COMPATABLE, SO Y-SITED MAXPIME AND NS
--- NOTE | 2017-01-13 03:13 | NUR ---
ASSESSMENT COMPLETE, PT AWAKE, USING URINAL, DENIES ANY NEEDS AT THIS TIME, BED IS LOW, SRX2, BED ALARM IS ON, CALL LIGHT IN REACH, WILL CONTINUE PLAN OF CARE
[2017-01-13 06:22] VITALS: BP 131/71
[2017-01-13 06:40] LABS: ALBUMIN 2.7 g/dL (3.4-5.0); ANION GAP 10.1 mmol/L (8-16); BILIRUBIN - TOTAL 0.58 mg/dL (0.2-1.3); CALCIUM 8.8 mg/dL (8.5-10.1); CARBON DIOXIDE 38.1 mmol/L (21.0-32.0); CREATININE - SERUM 1.4 mg/dL (0.6-1.3); MAGNESIUM - SERUM 1.5 mg/dL (1.8-2.4); PHOSPHOROUS 4.6 mg/dL (2.5-4.9); POTASSIUM - SERUM 5.2 mmol/L (3.5-5.1); PROTEIN - SERUM 8.2 g/dL (6.4-8.2)
--- NOTE | 2017-01-13 07:15 | NUR ---
PT SITTING UP IN BED ASKING TO BE REPOSITIONED, DONE. DENIES OTHER NEEDS WILL CONT TO MONITOR.
[2017-01-13 08:27] VITALS: BP 124/61
[2017-01-13 12:05] VITALS: BP 119/62
--- NOTE | 2017-01-13 12:53 | NUR ---
WAITING ON MAG TO BE DELIVERED FROM PHARM
[2017-01-13 16:43] VITALS: BP 150/56
--- NOTE | 2017-01-13 19:01 | NUR ---
PT SITTING UP IN BED AT BEDSIDE DENIES ANY NEEDS
--- NOTE | 2017-01-13 19:31 | NUR ---
RECEIVED REPORT, WILL ASSUME CARE OF PT, DENIES ANY NEEDS AT THIS TIME, BED IS LOW, SRX2, CALL LIGHT IN REACH, AT BEDSIDE, WILL CONTINUE PLAN OF CARE
[2017-01-13 20:00] VITALS: BP 146/50
--- NOTE | 2017-01-13 23:22 | NUR ---
ASSESSMENT COMPLETE, OXLarryCHEST PACEMAKER, SR-PJO-AEPES @10, 1/2NS AT 30, C-PAP @ NIGHT, [id number], BED IS LOW, SRX2, BED ALARM IS ON, CALL LIGHT IN REACH, WILL CONTINUE PLAN OF CARE
[2017-01-14] VITALS: BP 130/64
[2017-01-14 04:00] VITALS: BP 108/66
--- NOTE | 2017-01-14 04:42 | NUR ---
RESITED 20G IV IN L.FOREARM,
[2017-01-14 06:49] LABS: ALBUMIN 2.7 g/dL (3.4-5.0); BILIRUBIN - TOTAL 0.56 mg/dL (0.2-1.3); CALCIUM 8.8 mg/dL (8.5-10.1); CARBON DIOXIDE 39.8 mmol/L (21.0-32.0); CHOL - HDL RATIO 2.7 ratio (2.3-4.9); CREATININE - SERUM 1.3 mg/dL (0.6-1.3); LDL-HDL RATIO 1.5 ratio (1.5-3.5); MAGNESIUM - SERUM 1.5 mg/dL (1.8-2.4); PHOSPHOROUS 3.9 mg/dL (2.5-4.9); POTASSIUM - SERUM 4.8 mmol/L (3.5-5.1)
--- NOTE | 2017-01-14 07:09 | NUR ---
PT SITTING UP IN BED RECEIVING BREATHING TX DENIES ANY NEEDS AT THIS TIME WILL CONT TO MONITOR.
[2017-01-14 08:58] VITALS: BP 160/70
[2017-01-14 11:55] VITALS: BP 119/46
--- NOTE | 2017-01-14 12:40 | NUR ---
Nutrition Follow Up: Pt is eating 79% meal avg on a diabetic AHA diet. Wt gain since admit noted. +BM 01/12/17. Labs reviewed - Glucose elevated. Meds noted. Rec continue current diet. RD following.
--- NOTE | 2017-01-14 15:29 | NUR ---
Patient Name: ANTONIO LOPEZ Admission Status: ER Accout number: [id number] Admission Date: 01-12-2017 : 1940 Admission Diagnosis:SHORTNESS OF BREATH Attending: GEORGE Current LOS: 2 Anticipated DC Date: Planned Disposition: Inpatient Rehab Primary Insurance: HUMANA CHOICE PPO MCR ADVANT PLANNED EXTERNAL PROVIDER: [facility] Discharge Planning Comments: * Is the patient Alert and Oriented? Yes 0 * How many steps to enter\exit or inside your home? 6 0 * PCP DR MIRANDA 0 * Pharmacy [facility] 0 * Preadmission Environment Home with Family 0 * ADLs Independent 0 * Equipment Nebulizer Other Oxygen Walker Wheelchair 0 * Other Equipment ELECTRIC WHEELCHAIR LIFT [facility]QUIPMENT PROVIDER PREFERENCE 0 * List name and contact numbers for known caregivers / representatives who currently or will assist patient after discharge: RUSSELL LOPEZ, SPOUSE, 0 * Community resources currently utilized None 0 * Please name any agencies selected above. NONE 0 * Additional services required to return to the preadmission environment? No 0 * Can the patient safely return to the preadmission environment? Yes 0 * Has this patient been hospitalized within the prior 30 days at any hospital? No 0 CM MET WITH PT IN ROOM TO DISCUSS DISCHARGE PLANNING AND NEEDS. PT REPORTS LIVING AT HOME INDEPENDENTLY WITH SPOUSE. PT REPORTS [facility] PT HAS HAD [facility] IN THE PAST BUT HAS NO OUTSIDE SERVICES ASSISTING IN THE HOME NOW. CM DISCUSSED AVAILABILITY OF HOME HEALTH, REHAB SERVICES AND MEDICAL EQUIPMENT. PT WANTS REHAB AT [facility], WILL NOT CONSIDER [facility]; PT REPORTS HIS SPOUSE WILL PICK HIM UP FOR DISCHARGE HOME. CM LEFT CM CONTACT NUMBER AND HOME HEALTH CHOICE FORM FOR CONSIDERATION. IMPORTANT MESSAGE FROM MEDICARE PROVIDED AND DISCUSSED. CM SPOKE TO DR. MIRANDA VIA PHONE AND OBTAINED ORDERS FOR OT EVALUATION AND INPATIENT REHAB PRESCREENING. CM WAITING RESULTS OF INPATIENT REHAB PRESCREENING AND INSURANCE PREAUTHORIZATION FOR REHAB SERVICES IF ACCEPTABLE TO INPATIENT REHAB. Stock Driver: Neil Baldwin
--- NOTE | 2017-01-14 18:11 | NUR ---
PT SITTING UP IN BED DENIES ANY NEEDS OTHER THAN ICE WATER, GIVEN
--- NOTE | 2017-01-14 19:40 | NUR ---
PT IS RESTING IN BED WITH EYES OPEN. ALERT AND ORIENTED X 3. DENIES ANY PAIN OR DISCOMFORT AT THIS TIME. O2 IS ON @ 4LPM PER NC. TELEMETRY UNIT IS ON AND INTACT. IV IS INFUSING TO LFA WITHOUT DIFFICULTY. NO REDNESS OR EDEMA NOTED AT THE INSERTION SITE. SR'S ARE UP X 3 IN BED. CALL LIGHT AND BEDSIDE TABLE ARE WITHIN EASY REACH.
[2017-01-14 20:00] VITALS: BP 141/60
--- NOTE | 2017-01-14 22:09 | NUR ---
PT IS RESTING IN BED WITH EYES CLOSED. RESPS ARE EVEN AND UNLABORED. NO ACUTE DISTRESS NOTED.
[2017-01-14 23:59] VITALS: BP 115/71
--- NOTE | 2017-01-15 00:10 | NUR ---
RESTING IN BED WITH EYES CLOSED.
[2017-01-15 04:00] VITALS: BP 139/55
--- NOTE | 2017-01-15 04:05 | NUR ---
PT IS RESTING QUIETLY IN BED WITH EYES CLOSED.
[2017-01-15 05:40] LABS: BASOPHILS 0 % (0-2); EOSINOPHILS 0 % (0-7); HEMOGLOBIN 9.5 g/dL (13.5-17.5); IMMATURE GRANULOCYTES 0.4 % (0-5); LYMPHOCYTES 5.1 % (15-50); MCH 23.1 pg (26.0-34.0); MCHC 29.7 g/dL (31.0-37.0); MCV 77.9 fL (80.0-100.0); MEAN PLATELET VOLUME 9.9 fL (7.4-10.4); MONOCYTES 7.8 % (2-11); NEUTROPHILS 86.7 % (40-80); PLATELET COUNT 119 10x3/uL (130-400); RBC 4.11 10x6/uL (4.20-6.10); WBC 4.9 10x3/uL (4.8-10.8)
[2017-01-15 06:14] LABS: ALBUMIN 2.7 g/dL (3.4-5.0); ANION GAP 6.8 mmol/L (8-16); BILIRUBIN - TOTAL 0.5 mg/dL (0.2-1.3); CALCIUM 8.6 mg/dL (8.5-10.1); CARBON DIOXIDE 39.8 mmol/L (21.0-32.0); CREATININE - SERUM 1.3 mg/dL (0.6-1.3); MAGNESIUM - SERUM 1.7 mg/dL (1.8-2.4); PHOSPHOROUS 3.8 mg/dL (2.5-4.9); POTASSIUM - SERUM 4.6 mmol/L (3.5-5.1); PROTEIN - SERUM 7.5 g/dL (6.4-8.2)
--- NOTE | 2017-01-15 07:07 | NUR ---
PT IN BED. AWAKE AND ALERT. ATTENTION FOCUSED ON TELEVISION. STATES "AT SOME POINT TODAY I WOULD LIKE TO GET UP USING MY WALKER AND GO TO THE BATHROOM, BUT I'LL WAIT ON PHYSICAL THERAPY." DENIES ANY FURTHER NEEDS. WILL CONTINUE TO MONITOR.
[2017-01-15 09:34] VITALS: BP 154/70
--- NOTE | 2017-01-15 09:40 | NUR ---
RESTS WITH EYES CLOSED. RESP UL ON . CALL LIGHT IN REACH. WILL CONT. PLAN OF CARE.
[2017-01-15 12:38] VITALS: BP 144/66
[2017-01-15 16:48] VITALS: BP 157/74
--- NOTE | 2017-01-15 19:21 | NUR ---
BEDSIDE REPORT RECIEVED FROM [facility]. PT RESTING IN BED HOB 40. PT HAS IV TO LEFT FOREARM S/L. O2 4L NC. KILN SETTER NOTED. DRESSING TO RIGHT UPPER FOREARM. PT DENIES ANY NEEDS AT THIS TIME. NO S/S OF DISTRESS. BED LOW AND CALL LIGHT WITHIN REACH. WILL CPOC
[2017-01-15 20:00] VITALS: BP 154/75
[2017-01-16] VITALS: BP 152/72
--- NOTE | 2017-01-16 00:18 | NUR ---
PT HAD A BED BATH. LINEN AND GOWN CHANGED. TEGADERM AND NON STICK BANDAGES APPLIED TO RIGHT FOREARM SKIN TEAR.1-2 INCHES BELOW ELBOW. STERI STRIPS NOT REMOVED. LEFT FOREARM SKIN TEAR- NON STICK BANDAGES AND TEGADERM APPLIED. PT DENIES ANY PAIN FROM SKIN TEARS. MIRIAM APPLIED TO RED AREA ON BUTTOCK. PT DENIES ANY NEEDS JUST WANTS SLEEP. BED LOW CALL LIGHT WITHIN REACH. NO S/S OF DISTRESS WILL CONTINUE TO MONITOR
[2017-01-16 04:00] VITALS: BP 139/86
--- NOTE | 2017-01-16 04:18 | NUR ---
PT COULD NOT FIND URINAL AND HAD AN ACCIDENT IN BED. LINEN AND GOWN CHANGED. PT CLEANED. NO DRESSING APPLIED TO LEFT ARM SKIN TEAR. PT DENIES ANY NEEDS. NO S/S OF DISTRESS. WILL CPOC
--- NOTE | 2017-01-16 06:45 | NUR ---
PT ASLEEP. RESPIRATIONS EVEN AND UNLABORED. NO S/S OF DISTRESS. BED LOW CALL LIGHT WITHIN REACH. WILL CPOC
[2017-01-16 07:23] LABS: BASOPHILS 0 % (0-2); EOSINOPHILS 0.2 % (0-7); HEMATOCRIT 33.2 % (42.0-54.0); HEMOGLOBIN 9.8 g/dL (13.5-17.5); IMMATURE GRANULOCYTES 0.2 % (0-5); LYMPHOCYTES 8.6 % (15-50); MCHC 29.5 g/dL (31.0-37.0); MCV 77.8 fL (80.0-100.0); MEAN PLATELET VOLUME 10.3 fL (7.4-10.4); MONOCYTES 12.7 % (2-11); NEUTROPHILS 78.3 % (40-80); PLATELET COUNT 127 10x3/uL (130-400); RBC 4.27 10x6/uL (4.20-6.10); RDW 17.2 % (11.5-14.5)
[2017-01-16 07:24] LABS: WBC 6.3 10x3/uL (4.8-10.8)
--- NOTE | 2017-01-16 07:30 | NUR ---
PT IN BED RESTING. EVEN AND UNLABORED RESPIRATIONS NOTED. WILL CONTINUE TO MONITOR
[2017-01-16 07:34] LABS: ALBUMIN 2.6 g/dL (3.4-5.0); ALKALINE PHOSPHATASE 162 U/L (46-116); ALT (SGPT) 13 U/L (10-68); BILIRUBIN - TOTAL 0.46 mg/dL (0.2-1.3); CALCIUM 8.7 mg/dL (8.5-10.1); CHLORIDE - SERUM 93 mmol/L (98-107); MAGNESIUM - SERUM 2.1 mg/dL (1.8-2.4); POTASSIUM - SERUM 4.3 mmol/L (3.5-5.1); PRO BNP 8656 pg/mL (0-450); PROTEIN - SERUM 7.2 g/dL (6.4-8.2); SODIUM 134 mmol/L (136-145); UREA NITROGEN 39 mg/dL (7-18); eGFR NON AFRICAN AMERICAN 77 mL/min (90-120)
[2017-01-16 07:45] LABS: CALC OSMOLALITY 277 mosm/kg (275-300); GLUCOSE 113 mg/dL (74-106)
[2017-01-16 07:46] LABS: CARBON DIOXIDE 40.8 mmol/L (21.0-32.0)
[2017-01-16 08:00] VITALS: BP 120/77
--- NOTE | 2017-01-16 10:07 | NUR ---
UP TO CHAIR WITH PT ASSIST. RESP UL ON . CALL LIGHT IN REACH. BART NEEDS AT THIS TIME. WILL MONITOR.
[2017-01-16 12:00] VITALS: BP 137/54
[2017-01-16 16:00] VITALS: BP 126/54
--- NOTE | 2017-01-16 19:30 | NUR ---
RECIEVE REPORT. RESUME PLAN OF CARE. ALERT AND ORIENTED X4. RESTING IN BED. AT BEDSIDE. DENIES SOB OR PAIN. SINUS RHTHYM 83bpm ON TELEMETRY. NO SCDs. RECIEVES LOVENOX INJ. O2 @ 4L NC. CONTINUE PLAN OF CARE. BED LOCKED AND LOW. CALL LIGHT ON. TWO SIDERAILS UP.
[2017-01-16 20:00] VITALS: BP 155/73
--- NOTE | 2017-01-17 02:07 | NUR ---
SLEEPING IN BED. NO SIGNS OF DISTESS. CPAP ON. 76bpm CONTROLLED A-FIB ON TELEMETRY. CONTINUE PLAN OF CARE AND SAFETY PRECAUTIONS.
[2017-01-17 04:00] VITALS: BP 164/78
--- NOTE | 2017-01-17 07:36 | NUR ---
AM ROUNDS- PT IN BED, WITH EYES CLOSED. BED LOW AND WHEELS LOCKED, BEDRAILS X2, LT FA IV SL, O2 AT 4L NC, TELEMERTY SHOWING CAF 72. NAD NOTED, WILL CONTINUE TO MONTIOR.
[2017-01-17 08:00] VITALS: BP 146/56
--- NOTE | 2017-01-17 08:47 | NUR ---
AM MEDS GIVEN AT THIS TIME. PT IN BED, DENIES ANY NEEDS, CALL LIGHT IN REACH, NAD NOTED, WILL CONTINUE TO MONITOR.
--- NOTE | 2017-01-17 10:19 | NUR ---
ADMINISTERED PERCOCET FOR PAIN LEVEL OF 8/10. PT UP TO CHAIR, DENIES ANY OTHER NEEDS AT THIS TIME. CALL LIGHT IN REACH, NAD NOTED, WILL CONTINUE TO MONITOR.
--- NOTE | 2017-01-17 10:48 | NUR ---
Rehab Note- Acute Rehab Prescreen order received. The patient has [employer] insurance and will require a PreAuth prior to an acute rehab stay. Will begin PreAuth process. Thank you for this referral! Susanna Shannon RN Clinical Liaison, [facility] Rehab
--- NOTE | 2017-01-17 11:28 | NUR ---
BLOOD SUGAR OF 227, 4UNITS OF HUMALOG GIVEN PER S/S TO LT ARM. PT IN BED, DENIES ANY NEEDS AT THIS TIME. AT BEDSIDE, CALL LIGHT IN REACH,NAD NTOED, WILL CONTINUE TO MONITOR.
[2017-01-17 12:00] VITALS: BP 134/58
--- NOTE | 2017-01-17 12:43 | NUR ---
Rehab Note- Faxed clinicals to Radha Mayes with [employer], awaiting possible approval for acute rehab stay. Osbaldo Shannon RN Clinical Liaison, [facility] Rehab
--- NOTE | 2017-01-17 13:18 | NUR ---
Patient Name: ANTONIO LOPEZ Encounter No: [id number] : 1940 Primary Insurance: [employer] P[employer] MCR [employer] Anticipated DC Date: 01-17-2017 Planned Disposition: Inpatient Rehab External Planned Provider: [facility] DCP follow-up note: CM SPOKE TO DR. MIRANDA, PT IS READY FOR DISCHARGE TO INPATIENT REHAB. CM CALLED AND LEFT MESSAGE FOR [facility] OF [facility] ASKING FOR RETURN CALL. CM REVIEWED CHART WHICH INDICATED [facility] HAS SUBMITTED TO PT'S INSURANCE COMPANY FOR PREAUTHORIZATION FOR INPATIENT REHAB SERVICES AND IS WAITING DETERMINATION. PT NOTIFIED; PT IN AGREEMENT WITH DISCHARTGE TO INPATIENT REHAB AT [place]. IMPORTANT MESSAGE FROM [employer] PROVIDED AND EXPLAINED. CM WAITING INSURANCE APPROVAL FOR REHAB SERVICES AT [facility]. Neil Baldwin, CASE MANAGEMENT
--- NOTE | 2017-01-17 14:40 | NUR ---
Rehab Note- Received call from Lorena with [facility] that the patient's medical record was reviewed by the coroner/medical examiner and believed the patient needed a little more time in the acute hospital and then could have a SNF stay prior to discharging home. Peer to peer can be done within 5 calendar days from receiving denial letter, to be faxed at this time, will provide to CHRISTOPHER Crenshaw. Lorena to notify CHRISTOPHER Crenshaw of denial. Thank you for this referral! Susanna Shannon RN Clinical Liaison, [facility] Rehab
[2017-01-17 16:00] VITALS: BP 127/65
--- NOTE | 2017-01-17 16:39 | NUR ---
BLOOD SUGAR OF 265, 6UNIT OF HUMALOG GIVEN PER S/S. PT IN BED, DENIES ANY NEEDS AT THIS TIME. CALL LIGHT IN REACH, NAD NOTED, WILL CONTINUE TO MONITOR.
--- NOTE | 2017-01-17 19:34 | NUR ---
RECEIVED REPORT, WILL ASSUME CARE OF PT, DENIES ANY NEEDS, VISITING WITH , BED IS LOW, SRX2, CALL LIGHT IN REACH, WILL CONTINUE PLAN OF CARE
[2017-01-17 20:00] VITALS: BP 155/57
[2017-01-18] VITALS: BP 138/62
--- NOTE | 2017-01-18 03:24 | NUR ---
ASSESSMENT COMPLETE, SEE FLOWSHEET, PHOTO GRAPHICS LIBRARIAN GETTING PT CLEANED UP, PT DENIES ANY NEEDS, BED IS LOW, SRX2,CALL LIGHT IN REACH, WILL CONTINUE PLAN OF CARE
[2017-01-18 04:00] VITALS: BP 147/72
--- NOTE | 2017-01-18 05:04 | NUR ---
RESTING IN BED WITH TV ON AND WATCHING IT. NO DISTRESS. NO NEEDS VOICED. CPOC.
[2017-01-18 06:48] LABS: BASOPHILS 0 % (0-2); EOSINOPHILS 0.2 % (0-7); HEMATOCRIT 35.3 % (42.0-54.0); HEMOGLOBIN 10.5 g/dL (13.5-17.5); IMMATURE GRANULOCYTES 0.7 % (0-5); LYMPHOCYTES 8.2 % (15-50); MCH 23.2 pg (26.0-34.0); MCHC 29.7 g/dL (31.0-37.0); MCV 77.9 fL (80.0-100.0); MEAN PLATELET VOLUME 10.2 fL (7.4-10.4); MONOCYTES 10.4 % (2-11); NEUTROPHILS 80.5 % (40-80); PLATELET COUNT 127 10x3/uL (130-400); RBC 4.53 10x6/uL (4.20-6.10); RDW 17.1 % (11.5-14.5); WBC 5.9 10x3/uL (4.8-10.8)
[2017-01-18 07:13] LABS: CALC OSMOLALITY 275 mosm/kg (275-300); CALCIUM 8.6 mg/dL (8.5-10.1); CARBON DIOXIDE 39.4 mmol/L (21.0-32.0); CHLORIDE - SERUM 93 mmol/L (98-107); CREATININE - SERUM 0.9 mg/dL (0.6-1.3); POTASSIUM - SERUM 4.6 mmol/L (3.5-5.1); PRO BNP 3807 pg/mL (0-450); SODIUM 133 mmol/L (136-145); UREA NITROGEN 30 mg/dL (7-18); eGFR NON AFRICAN AMERICAN 87 mL/min (90-120)
[2017-01-18 07:23] LABS: GLUCOSE 164 mg/dL (74-106)
[2017-01-18 08:57] VITALS: BP 155/71
--- NOTE | 2017-01-18 09:34 | NUR ---
ASSESSMENT COMPLETED. TELEMERTY SHOWS CAF AT 104. O2 AT 2 L/M PER NC. LEFT FA SL. PACER TO LEFT CHEST. PT IS [place]. HE HAS BILATERAL SKIN TEARS TO HIS ARMS. SOME REDDNESS TO HIS BOTTOM. DENIES ANY NEEDS. CALL LIGHT IN REACH WITH SR UP WILL MONITOR
[2017-01-18] MEDS ORDERED: FLORAJEN3 CAPS460 MG PO (10:50)
[2017-01-18] MEDS ORDERED: DALIRESP500 MCG PO (10:50)
[2017-01-18] MEDS ORDERED: LEVEMIR100 U/M1 SC (10:52)
[2017-01-18] MEDS ORDERED: PREDNISONE20 MG PO (10:54)
[2017-01-18 12:20] VITALS: BP 145/59
--- NOTE | 2017-01-18 12:40 | NUR ---
PT DISCHARGED. IV DCD WITH TIP INTACT. TO PRIVATE CAR PER WHEELCHAIR
== END 2017-01-18 14:16 | disposition home health service (06) | DRG 291 ==
LOC: D.ER 22:05 → D.M2 01-12 01:25 → OBSVTIME 01-12 01:26 → D.M2 01-12 01:27
PROVIDERS: Family Medicine; ADMIT Family Medicine
DX: I13.0 Hypertensive heart and chronic kidney disease with heart failure and stage 1 through stage 4 chronic kidney disease, or unspecified chronic kidney disease (principal); I50.33 Acute on chronic diastolic (congestive) heart failure; J96.21 Acute and chronic respiratory failure with hypoxia; J18.9 Pneumonia, unspecified organism; J44.1 Chronic obstructive pulmonary disease with (acute) exacerbation; N17.9 Acute kidney failure, unspecified; J44.0 Chronic obstructive pulmonary disease with (acute) lower respiratory infection; N18.9 Chronic kidney disease, unspecified; E11.22 Type 2 diabetes mellitus with diabetic chronic kidney disease; E11.40 Type 2 diabetes mellitus with diabetic neuropathy, unspecified; E87.5 Hyperkalemia; E78.5 Hyperlipidemia, unspecified; D69.6 Thrombocytopenia, unspecified; I25.10 Atherosclerotic heart disease of native coronary artery without angina pectoris; Z95.5 Presence of coronary angioplasty implant and graft; Z87.891 Personal history of nicotine dependence; G47.33 Obstructive sleep apnea (adult) (pediatric); I48.2 Chronic atrial fibrillation; Z95.0 Presence of cardiac pacemaker; K21.9 Gastro-esophageal reflux disease without esophagitis; N40.0 Benign prostatic hyperplasia without lower urinary tract symptoms; E03.9 Hypothyroidism, unspecified; F41.8 Other specified anxiety disorders; D64.9 Anemia, unspecified; E66.01 Morbid (severe) obesity due to excess calories; Z68.35 Body mass index [BMI] 35.0-35.9, adult; Z74.09 Other reduced mobility; E83.42 Hypomagnesemia; I27.2 Other secondary pulmonary hypertension; I07.1 Rheumatic tricuspid insufficiency

== ENCOUNTER → 2017-01-26 10:35 | Outpatient (CLI) | payer MEDICARE ==
[2017-01-12 12:53] VITALS: BMI 35.8
[~2017-01-26 10:35] MED LIST changes: +DALIRESP500 MCG PO; +FLORAJEN3 CAPS460 MG PO; +PREDNISONE20 MG PO
== END | disposition home or self-care (01) ==
LOC: D.RAD 10:35
DX: M54.6 Pain in thoracic spine (principal); G89.29 Other chronic pain

== ENCOUNTER 2017-07-28 05:07 | Inpatient (IN) | payer MEDICARE, MEDICAID | END 2017-07-31 16:15 | disposition home or self-care (01) | DRG 291 | LOC: D.ER 05:07 → D.MS 11:40 → D.SDCHOLD 14:25 → D.MS 17:22 | DX: I11.0 Hypertensive heart disease with heart failure (principal); J18.9 Pneumonia, unspecified organism; J96.21 Acute and chronic respiratory failure with hypoxia; J44.0 Chronic obstructive pulmonary disease with (acute) lower respiratory infection; J44.1 Chronic obstructive pulmonary disease with (acute) exacerbation; N17.9 Acute kidney failure, unspecified; I50.33 Acute on chronic diastolic (congestive) heart failure; I42.9 Cardiomyopathy, unspecified; I48.2 Chronic atrial fibrillation; Z95.0 Presence of cardiac pacemaker; I25.10 Atherosclerotic heart disease of native coronary artery without angina pectoris; E11.40 Type 2 diabetes mellitus with diabetic neuropathy, unspecified; Z79.4 Long term (current) use of insulin; D63.8 Anemia in other chronic diseases classified elsewhere; E03.9 Hypothyroidism, unspecified; E87.5 Hyperkalemia; N40.0 Benign prostatic hyperplasia without lower urinary tract symptoms; K21.9 Gastro-esophageal reflux disease without esophagitis; F41.8 Other specified anxiety disorders ==

== ENCOUNTER 2017-08-24 14:49 | Inpatient (IN) | payer MEDICARE, MEDICAID ==
[~2017-08-24] VITALS: Ht 188 cm; Wt 110.7 kg
[~2017-08-24 14:49] MED LIST changes: +LIPITOR10 MG PO; +Rocephin INJ IM; +ZITHROMAX250 MG PO
[2017-08-24 15:43] VITALS: BP 118/59
[2017-08-24 17:46] LABS: BASOPHILS 0 % (0-2); EOSINOPHILS 2.2 % (0-7); HEMATOCRIT 27.9 % (42.0-54.0); HEMOGLOBIN 8.4 g/dL (13.5-17.5); IMMATURE GRANULOCYTES 0.8 % (0-5); LYMPHOCYTES 9.9 % (15-50); MCH 24.5 pg (26.0-34.0); MCHC 30.1 g/dL (31.0-37.0); MCV 81.3 fL (80.0-100.0); MEAN PLATELET VOLUME 9.9 fL (7.4-10.4); MONOCYTES 13.3 % (2-11); NEUTROPHILS 73.8 % (40-80); PLATELET COUNT 126 10x3/uL (130-400); RBC 3.43 10x6/uL (4.20-6.10); RDW 16.9 % (11.5-14.5)
[2017-08-24 18:07] LABS: ALBUMIN 2.7 g/dL (3.4-5.0); ANION GAP 13.6 mmol/L (8-16); BILIRUBIN - TOTAL 0.3 mg/dL (0.2-1.3); CALCIUM 8.9 mg/dL (8.5-10.1); CARBON DIOXIDE 29.7 mmol/L (21.0-32.0); CREATININE - SERUM 1.3 mg/dL (0.6-1.3); PROTEIN - SERUM 7.9 g/dL (6.4-8.2)
[2017-08-24 18:25] LABS: POTASSIUM - SERUM 6.3 mmol/L (3.5-5.1)
[2017-08-24 20:00] VITALS: BP 143/61
[2017-08-24 20:42] VITALS: BP 143/61
[2017-08-25 01:41] VITALS: BP 124/60
[2017-08-25 05:21] VITALS: BP 107/49
[2017-08-25 06:41] LABS: BASOPHILS 0.2 % (0-2); EOSINOPHILS 5.2 % (0-7); HEMATOCRIT 28.7 % (42.0-54.0); HEMOGLOBIN 8.3 g/dL (13.5-17.5); IMMATURE GRANULOCYTES 1.1 % (0-5); LYMPHOCYTES 14.9 % (15-50); MCH 23.9 pg (26.0-34.0); MCHC 28.9 g/dL (31.0-37.0); MCV 82.5 fL (80.0-100.0); MEAN PLATELET VOLUME 10.6 fL (7.4-10.4); MONOCYTES 14.3 % (2-11); NEUTROPHILS 64.3 % (40-80); PLATELET COUNT 145 10x3/uL (130-400); RBC 3.48 10x6/uL (4.20-6.10); RDW 16.8 % (11.5-14.5); WBC 4.4 10x3/uL (4.8-10.8)
[2017-08-25 06:56] LABS: % SATURATION 7 % (15-55); IRON 19 ug/dl (35-150); TOTAL IRON BIND CAPACITY 247 ug/dl (260-445); UNSAT IRON BIND CAPACITY 228 ug/dl (150-375)
[2017-08-25 07:18] LABS: ALBUMIN 2.5 g/dL (3.4-5.0); ANION GAP 12.6 mmol/L (8-16); BILIRUBIN - TOTAL 0.36 mg/dL (0.2-1.3); CALCIUM 9.2 mg/dL (8.5-10.1); CARBON DIOXIDE 29.4 mmol/L (21.0-32.0); CREATININE - SERUM 1.3 mg/dL (0.6-1.3); DIGOXIN 2.69 ng/mL (0.90-2.00); MAGNESIUM - SERUM 1.6 mg/dL (1.8-2.4); PHOSPHOROUS 3.7 mg/dL (2.5-4.9); PROTEIN - SERUM 7.6 g/dL (6.4-8.2); THYROID STIMULATING HORMONE 2.42 uIU/mL (0.36-3.74)
[2017-08-25 08:45] VITALS: BP 137/60
[2017-08-25 10:53] VITALS: BMI 31.3
[2017-08-25 13:57] VITALS: Ht 188 cm; Wt 110.7 kg
[2017-08-25 20:00] VITALS: BP 142/61
[2017-08-26] VITALS (9 sets, daily range): BP systolic 104–159; BP diastolic 50–74
[2017-08-26 05:13] LABS: BASOPHILS 0.2 % (0-2); EOSINOPHILS 3.2 % (0-7); HEMATOCRIT 28.5 % (42.0-54.0); HEMOGLOBIN 8.3 g/dL (13.5-17.5); IMMATURE GRANULOCYTES 0.8 % (0-5); LYMPHOCYTES 12.1 % (15-50); MCH 23.7 pg (26.0-34.0); MCHC 29.1 g/dL (31.0-37.0); MCV 81.4 fL (80.0-100.0); MEAN PLATELET VOLUME 10.3 fL (7.4-10.4); MONOCYTES 14.2 % (2-11); NEUTROPHILS 69.5 % (40-80); PLATELET COUNT 146 10x3/uL (130-400); WBC 5.1 10x3/uL (4.8-10.8)
[2017-08-26 05:25] LABS: ALBUMIN 2.5 g/dL (3.4-5.0); ANION GAP 8.7 mmol/L (8-16); BILIRUBIN - TOTAL 0.31 mg/dL (0.2-1.3); CALCIUM 9.2 mg/dL (8.5-10.1); CARBON DIOXIDE 32.4 mmol/L (21.0-32.0); CREATININE - SERUM 1.3 mg/dL (0.6-1.3); MAGNESIUM - SERUM 1.5 mg/dL (1.8-2.4); PHOSPHOROUS 3.6 mg/dL (2.5-4.9); POTASSIUM - SERUM 5.1 mmol/L (3.5-5.1); PROTEIN - SERUM 7.6 g/dL (6.4-8.2)
[2017-08-26 11:34] LABS: APTT 40.2 SECONDS (22.8-39.4); INR 1.06 (0.85-1.17); PROTIME 13.4 SECONDS (11.6-15.0)
[2017-08-27 04:00] VITALS: BP 157/77
[2017-08-27 04:39] LABS: BASOPHILS 0.2 % (0-2); EOSINOPHILS 0 % (0-7); HEMATOCRIT 30.6 % (42.0-54.0); HEMOGLOBIN 9.1 g/dL (13.5-17.5); IMMATURE GRANULOCYTES 1.1 % (0-5); LYMPHOCYTES 7.1 % (15-50); MCH 24.1 pg (26.0-34.0); MCHC 29.7 g/dL (31.0-37.0); MCV 81.2 fL (80.0-100.0); NEUTROPHILS 87.6 % (40-80); PLATELET COUNT 129 10x3/uL (130-400); RBC 3.77 10x6/uL (4.20-6.10); RDW 16.8 % (11.5-14.5); WBC 4.5 10x3/uL (4.8-10.8)
[2017-08-27 05:26] LABS: ALBUMIN 2.7 g/dL (3.4-5.0); BILIRUBIN - TOTAL 0.41 mg/dL (0.2-1.3); CALCIUM 9.1 mg/dL (8.5-10.1); CARBON DIOXIDE 29.2 mmol/L (21.0-32.0); CHOL - HDL RATIO 2.8 ratio (2.3-4.9); CREATININE - SERUM 1.4 mg/dL (0.6-1.3); LDL-HDL RATIO 1.4 ratio (1.5-3.5); MAGNESIUM - SERUM 1.6 mg/dL (1.8-2.4); PHOSPHOROUS 4.5 mg/dL (2.5-4.9); PROTEIN - SERUM 8.2 g/dL (6.4-8.2)
[2017-08-27 05:29] LABS: ANION GAP 12.8 mmol/L (8-16); DIGOXIN 1.83 ng/mL (0.90-2.00)
[2017-08-27 09:47] VITALS: BP 153/79
[2017-08-27 12:42] VITALS: BP 143/66
[2017-08-27 18:13] VITALS: BP 143/59
[2017-08-27 21:29] LABS: APPEARANCE HAZY (CLEAR); BACTERIA NONE SEEN /hpf (NONE SEEN); BILIRUBIN NEGATIVE (NEGATIVE); COLOR YELLOW (YELLOW); EPITHELIAL CELLS 0-5 /hpf (0-5); GLUCOSE NEGATIVE (NEGATIVE); KETONE NEGATIVE (NEGATIVE); NITRITE NEGATIVE (NEGATIVE); PROTEIN TRACE mg/dL (NEGATIVE); RED CELLS - URINE 0-5 /hpf (0-5); UROBILINOGEN NORMAL (NORMAL); WHITE CELLS - URINE 0-5 /hpf (0-5)
[2017-08-27 21:35] VITALS: BP 130/67
[2017-08-28 01:24] VITALS: BP 135/81
[2017-08-28 05:59] LABS: BASOPHILS 0.2 % (0-2); EOSINOPHILS 0 % (0-7); HEMATOCRIT 30.9 % (42.0-54.0); HEMOGLOBIN 9.1 g/dL (13.5-17.5); IMMATURE GRANULOCYTES 0.7 % (0-5); LYMPHOCYTES 5.4 % (15-50); MCH 24.1 pg (26.0-34.0); MCHC 29.4 g/dL (31.0-37.0); MEAN PLATELET VOLUME 9.9 fL (7.4-10.4); MONOCYTES 6.3 % (2-11); NEUTROPHILS 87.4 % (40-80); PLATELET COUNT 131 10x3/uL (130-400); RBC 3.77 10x6/uL (4.20-6.10); RDW 16.8 % (11.5-14.5); WBC 5.8 10x3/uL (4.8-10.8)
[2017-08-28 06:20] LABS: CALCIUM 9.2 mg/dL (8.5-10.1); CREATININE - SERUM 1.4 mg/dL (0.6-1.3); MAGNESIUM - SERUM 1.8 mg/dL (1.8-2.4); PHOSPHOROUS 4.1 mg/dL (2.5-4.9)
[2017-08-28 06:22] LABS: DIGOXIN 1.12 ng/mL (0.90-2.00)
[2017-08-28 06:30] VITALS: BP 111/70
[2017-08-28 09:10] VITALS: BP 140/56
[2017-08-28 12:42] VITALS: BP 141/62
[2017-08-28 16:26] VITALS: BP 113/56
[2017-08-28 20:43] VITALS: BP 156/51
[2017-08-29 02:27] VITALS: BP 155/64
[2017-08-29 06:28] LABS: BASOPHILS 0 % (0-2); EOSINOPHILS 0 % (0-7); HEMATOCRIT 31.8 % (42.0-54.0); HEMOGLOBIN 9.4 g/dL (13.5-17.5); IMMATURE GRANULOCYTES 0.8 % (0-5); LYMPHOCYTES 5.1 % (15-50); MCH 24.3 pg (26.0-34.0); MCHC 29.6 g/dL (31.0-37.0); MCV 82.2 fL (80.0-100.0); MEAN PLATELET VOLUME 9.9 fL (7.4-10.4); MONOCYTES 6.8 % (2-11); NEUTROPHILS 87.3 % (40-80); PLATELET COUNT 133 10x3/uL (130-400); RBC 3.87 10x6/uL (4.20-6.10)
[2017-08-29 06:55] LABS: ALBUMIN 2.7 g/dL (3.4-5.0); ANION GAP 10.2 mmol/L (8-16); BILIRUBIN - TOTAL 0.3 mg/dL (0.2-1.3); CALCIUM 9.3 mg/dL (8.5-10.1); CARBON DIOXIDE 32.7 mmol/L (21.0-32.0); CREATININE - SERUM 1.2 mg/dL (0.6-1.3); POTASSIUM - SERUM 4.9 mmol/L (3.5-5.1); PROTEIN - SERUM 7.9 g/dL (6.4-8.2)
[2017-08-29 09:19] VITALS: BP 141/71
[2017-08-29 11:39] VITALS: BP 152/88
[2017-08-29 15:32] VITALS: BP 138/79
[2017-08-29 19:00] VITALS: BP 166/69
[2017-08-30 04:00] VITALS: BP 134/53
[2017-08-30 08:14] VITALS: BP 143/82
[2017-08-30 09:13] LABS: ANION GAP 7.5 mmol/L (8-16); CALCIUM 9.7 mg/dL (8.5-10.1); CARBON DIOXIDE 35.8 mmol/L (21.0-32.0); CREATININE - SERUM 1.1 mg/dL (0.6-1.3); POTASSIUM - SERUM 4.3 mmol/L (3.5-5.1)
[2017-08-30 09:19] LABS: ERYTHROPOIETIN 27.5 mIU/mL (2.6-18.5)
[2017-08-30 09:31] LABS: BASOPHILS 0.1 % (0-2); EOSINOPHILS 0.3 % (0-7); HEMATOCRIT 34.8 % (42.0-54.0); HEMOGLOBIN 10.3 g/dL (13.5-17.5); IMMATURE GRANULOCYTES 0.9 % (0-5); LYMPHOCYTES 6.2 % (15-50); MCH 24.5 pg (26.0-34.0); MCHC 29.6 g/dL (31.0-37.0); MCV 82.7 fL (80.0-100.0); MONOCYTES 9.8 % (2-11); NEUTROPHILS 82.7 % (40-80); RBC 4.21 10x6/uL (4.20-6.10); RDW 17.5 % (11.5-14.5)
[2017-08-30 09:42] LABS: PLATELET COUNT 161 10x3/uL (130-400)
[2017-08-30 11:53] VITALS: BP 132/59
[2017-08-30 15:24] LABS: SPE - A/G RATIO 0.7 (0.7-1.7); SPE - ALPHA-1 GLOBULIN 0.3 g/dL (0.0-0.4); SPE - ALPHA-2 GLOBULIN 0.9 g/dL (0.4-1.0); SPE - BETA GLOBULIN 1.3 g/dL (0.7-1.3); SPE - GAMMA GLOBULIN 1.9 g/dL (0.4-1.8); SPE - M-SPIKE Not Observed g/dL (Not Observed); SPE - TOTAL PROTEIN 7.3 g/dL (6.0-8.5)
[2017-08-30 16:29] VITALS: BP 132/65
[2017-08-30 19:00] VITALS: BP 137/71
[2017-08-31 03:41] VITALS: BP 105/60
[2017-08-31 04:00] VITALS: BP 161/63
[2017-08-31 08:39] VITALS: BP 143/59
[2017-08-31 10:24] LABS: BASOPHILS 0.1 % (0-2); EOSINOPHILS 0.5 % (0-7); HEMOGLOBIN 10.7 g/dL (13.5-17.5); IMMATURE GRANULOCYTES 1.3 % (0-5); LYMPHOCYTES 7.9 % (15-50); MCH 24.7 pg (26.0-34.0); MCHC 29.7 g/dL (31.0-37.0); MCV 83.1 fL (80.0-100.0); MEAN PLATELET VOLUME 10.2 fL (7.4-10.4); MONOCYTES 10.2 % (2-11); PLATELET COUNT 150 10x3/uL (130-400); RBC 4.33 10x6/uL (4.20-6.10); RDW 17.9 % (11.5-14.5); WBC 8.5 10x3/uL (4.8-10.8)
[2017-08-31 10:45] LABS: CALC OSMOLALITY 282 mosm/kg (275-300); CALCIUM 10.2 mg/dL (8.5-10.1); CARBON DIOXIDE 36.9 mmol/L (21.0-32.0); CHLORIDE - SERUM 94 mmol/L (98-107); GLUCOSE 158 mg/dL (74-106); POTASSIUM - SERUM 4.2 mmol/L (3.5-5.1); SODIUM 135 mmol/L (136-145); UREA NITROGEN 40 mg/dL (7-18); eGFR NON AFRICAN AMERICAN 77 mL/min (90-120)
[2017-08-31 11:10] VITALS: BP 148/63
[2017-08-31 15:06] VITALS: BP 125/50
[2017-08-31 19:00] VITALS: BP 156/65
[2017-09-01 04:00] VITALS: BP 192/73
[2017-09-01 06:19] LABS: BASOPHILS 0.2 % (0-2); EOSINOPHILS 0.5 % (0-7); HEMATOCRIT 36.6 % (42.0-54.0); HEMOGLOBIN 10.8 g/dL (13.5-17.5); IMMATURE GRANULOCYTES 1.4 % (0-5); LYMPHOCYTES 11.8 % (15-50); MCH 24.3 pg (26.0-34.0); MCHC 29.5 g/dL (31.0-37.0); MCV 82.2 fL (80.0-100.0); MEAN PLATELET VOLUME 9.6 fL (7.4-10.4); NEUTROPHILS 76.1 % (40-80); PLATELET COUNT 141 10x3/uL (130-400); RBC 4.45 10x6/uL (4.20-6.10); RDW 18.3 % (11.5-14.5); WBC 9.7 10x3/uL (4.8-10.8)
[2017-09-01 07:01] LABS: CALC OSMOLALITY 272 mosm/kg (275-300); CALCIUM 10.1 mg/dL (8.5-10.1); CARBON DIOXIDE 34.4 mmol/L (21.0-32.0); CHLORIDE - SERUM 94 mmol/L (98-107); CREATININE - SERUM 0.8 mg/dL (0.6-1.3); DIGOXIN 0.84 ng/mL (0.90-2.00); MAGNESIUM - SERUM 1.7 mg/dL (1.8-2.4); PHOSPHOROUS 2.8 mg/dL (2.5-4.9); POTASSIUM - SERUM 4.1 mmol/L (3.5-5.1); SODIUM 132 mmol/L (136-145); UREA NITROGEN 42 mg/dL (7-18); eGFR NON AFRICAN AMERICAN > 90 mL/min (90-120)
[2017-09-01 07:08] LABS: GLUCOSE 38 mg/dL (74-106)
[2017-09-01 07:44] VITALS: BP 129/62
[2017-09-01] MEDS ORDERED: LANOXIN125 MCG PO (10:27)
[2017-09-01 12:29] VITALS: BP 104/59
== END 2017-09-01 13:57 | disposition home health service (06) | DRG 177 ==
LOC: D.M2 14:49
PROVIDERS: Family Medicine; General Practice; Internal Medicine Hematology & Oncology
PROC: 07DR3ZX Extraction of Iliac Bone Marrow, Percutaneous Approach, Diagnostic (ICD-10-PCS; principal; 2017-08-26 15:40)
DX: J15.6 Pneumonia due to other Gram-negative bacteria (principal); J96.21 Acute and chronic respiratory failure with hypoxia; I50.33 Acute on chronic diastolic (congestive) heart failure; J44.0 Chronic obstructive pulmonary disease with (acute) lower respiratory infection; J44.1 Chronic obstructive pulmonary disease with (acute) exacerbation; N17.9 Acute kidney failure, unspecified; I42.9 Cardiomyopathy, unspecified; J69.0 Pneumonitis due to inhalation of food and vomit; J13 Pneumonia due to Streptococcus pneumoniae; I25.10 Atherosclerotic heart disease of native coronary artery without angina pectoris; E78.5 Hyperlipidemia, unspecified; E11.40 Type 2 diabetes mellitus with diabetic neuropathy, unspecified; I11.0 Hypertensive heart disease with heart failure; D69.6 Thrombocytopenia, unspecified; G47.33 Obstructive sleep apnea (adult) (pediatric); Z74.09 Other reduced mobility; D50.9 Iron deficiency anemia, unspecified; E03.9 Hypothyroidism, unspecified; N40.0 Benign prostatic hyperplasia without lower urinary tract symptoms; E66.01 Morbid (severe) obesity due to excess calories; Z68.31 Body mass index [BMI] 31.0-31.9, adult; Z95.0 Presence of cardiac pacemaker; E87.5 Hyperkalemia; I48.2 Chronic atrial fibrillation; R16.1 Splenomegaly, not elsewhere classified; K74.60 Unspecified cirrhosis of liver; F41.8 Other specified anxiety disorders; I07.1 Rheumatic tricuspid insufficiency; I27.20 Pulmonary hypertension, unspecified

== ENCOUNTER 2017-09-14 23:45 | Emergency (ER) | payer MEDICARE, MEDICAID ==
[2017-08-25 13:57] VITALS: BMI 31.3
[~2017-09-14 23:45] MED LIST changes: +LANOXIN125 MCG PO
[2017-09-15 00:52] LABS: INR 0.97 (0.85-1.17); PROTIME 12.5 SECONDS (11.6-15.0)
[2017-09-15 00:53] LABS: APTT 49.9 SECONDS (22.8-39.4); BASOPHILS 0 % (0-2); HEMATOCRIT 31.7 % (42.0-54.0); HEMOGLOBIN 9.7 g/dL (13.5-17.5); IMMATURE GRANULOCYTES 0.4 % (0-5); MCH 24.9 pg (26.0-34.0); MCHC 30.6 g/dL (31.0-37.0); MCV 81.3 fL (80.0-100.0); MEAN PLATELET VOLUME 10.6 fL (7.4-10.4); MONOCYTES 10.2 % (2-11); NEUTROPHILS 77.4 % (40-80); PLATELET COUNT 103 10x3/uL (130-400); RDW 17.3 % (11.5-14.5)
[2017-09-15 00:58] LABS: ALBUMIN 2.6 g/dL (3.4-5.0); ALKALINE PHOSPHATASE 202 U/L (46-116); ALT (SGPT) 17 U/L (10-68); CALC OSMOLALITY 281 mosm/kg (275-300); CALCIUM 9.2 mg/dL (8.5-10.1); CARBON DIOXIDE 31.1 mmol/L (21.0-32.0); CHLORIDE - SERUM 96 mmol/L (98-107); PROTEIN - SERUM 7.6 g/dL (6.4-8.2); SODIUM 133 mmol/L (136-145); UREA NITROGEN 43 mg/dL (7-18); eGFR NON AFRICAN AMERICAN 77 mL/min (90-120)
[2017-09-15 00:59] LABS: GLUCOSE 190 mg/dL (74-106)
== END 2017-09-15 02:20 | disposition home or self-care (01) ==
LOC: D.ER 23:45
PROVIDERS: Nurse Practitioner Family
DX: R04.0 Epistaxis (principal); I50.9 Heart failure, unspecified; J44.9 Chronic obstructive pulmonary disease, unspecified; I10 Essential (primary) hypertension

== ENCOUNTER 2017-10-02 10:20 | Inpatient (IN) | payer MEDICARE, MEDICAID ==
[~2017-10-02] VITALS: Ht 185.4 cm; Wt 89.2 kg
[2017-10-02 12:01] LABS: BASOPHILS 0.2 % (0-2); EOSINOPHILS 0.5 % (0-7); HEMATOCRIT 34.5 % (42.0-54.0); HEMOGLOBIN 10.4 g/dL (13.5-17.5); IMMATURE GRANULOCYTES 0.2 % (0-5); LYMPHOCYTES 10.4 % (15-50); MCH 24.9 pg (26.0-34.0); MCHC 30.1 g/dL (31.0-37.0); MCV 82.7 fL (80.0-100.0); MONOCYTES 11.9 % (2-11); NEUTROPHILS 76.8 % (40-80); RBC 4.17 10x6/uL (4.20-6.10); RDW 17.2 % (11.5-14.5); WBC 5.9 10x3/uL (4.8-10.8)
[2017-10-02 12:03] LABS: PLATELET COUNT 128 10x3/uL (130-400)
[2017-10-02 12:21] LABS: ALBUMIN 2.6 g/dL (3.4-5.0); ANION GAP 7.6 mmol/L (8-16); BILIRUBIN - TOTAL 0.35 mg/dL (0.2-1.3); CALCIUM 10.5 mg/dL (8.5-10.1); CARBON DIOXIDE 32.7 mmol/L (21.0-32.0); CREATININE - SERUM 1.5 mg/dL (0.6-1.3); PROTEIN - SERUM 7.4 g/dL (6.4-8.2)
[2017-10-02 12:28] LABS: POTASSIUM - SERUM 6.3 mmol/L (3.5-5.1)
[2017-10-02 13:53] LABS: APPEARANCE CLEAR (CLEAR); BILIRUBIN NEGATIVE (NEGATIVE); COLOR DK YELLOW (YELLOW); GLUCOSE NEGATIVE (NEGATIVE); KETONE NEGATIVE (NEGATIVE); NITRITE NEGATIVE (NEGATIVE); PROTEIN NEGATIVE (NEGATIVE); UROBILINOGEN NORMAL (NORMAL)
[2017-10-02 16:44] VITALS: BP 138/74; BMI 28.0
[2017-10-02 17:56] LABS: APPEARANCE CLEAR (CLEAR); BILIRUBIN NEGATIVE (NEGATIVE); COLOR YELLOW (YELLOW); GLUCOSE NEGATIVE (NEGATIVE); KETONE NEGATIVE (NEGATIVE); NITRITE NEGATIVE (NEGATIVE); PH 5.5 (5.0-6.0); PROTEIN NEGATIVE (NEGATIVE); UROBILINOGEN NORMAL (NORMAL)
[2017-10-02 21:22] VITALS: BP 127/61
[2017-10-03 01:10] VITALS: BP 95/45
[2017-10-03 05:09] VITALS: BP 152/73
[2017-10-03 05:13] LABS: BASOPHILS 0 % (0-2); EOSINOPHILS 0 % (0-7); HEMATOCRIT 33.9 % (42.0-54.0); HEMOGLOBIN 10.4 g/dL (13.5-17.5); IMMATURE GRANULOCYTES 0.8 % (0-5); LYMPHOCYTES 7.9 % (15-50); MCH 24.8 pg (26.0-34.0); MCHC 30.7 g/dL (31.0-37.0); MCV 80.9 fL (80.0-100.0); MEAN PLATELET VOLUME 10.6 fL (7.4-10.4); MONOCYTES 4.9 % (2-11); NEUTROPHILS 86.4 % (40-80); PLATELET COUNT 127 10x3/uL (130-400); RBC 4.19 10x6/uL (4.20-6.10); RDW 16.9 % (11.5-14.5)
[2017-10-03 05:18] LABS: WBC 2.7 10x3/uL (4.8-10.8)
[2017-10-03 05:47] LABS: ALBUMIN 2.6 g/dL (3.4-5.0); ANION GAP 12.6 mmol/L (8-16); BILIRUBIN - TOTAL 0.39 mg/dL (0.2-1.3); CALCIUM 10.6 mg/dL (8.5-10.1); CARBON DIOXIDE 29.2 mmol/L (21.0-32.0); CREATININE - SERUM 1.3 mg/dL (0.6-1.3); DIGOXIN 1.05 ng/mL (0.90-2.00); MAGNESIUM - SERUM 1.3 mg/dL (1.8-2.4); PHOSPHOROUS 3.3 mg/dL (2.5-4.9); PROTEIN - SERUM 7.8 g/dL (6.4-8.2); THYROID STIMULATING HORMONE 0.25 uIU/mL (0.36-3.74)
[2017-10-03 05:49] LABS: POTASSIUM - SERUM 4.8 mmol/L (3.5-5.1)
[2017-10-03 09:42] VITALS: BP 122/55
[2017-10-03 12:39] VITALS: BP 111/52
[2017-10-03 13:31] VITALS: BMI 27.9
[2017-10-03 16:41] VITALS: BP 112/50
[2017-10-03 21:23] VITALS: BP 137/55
[2017-10-04] VITALS (7 sets, daily range): BP systolic 113–140; BP diastolic 49–74
[2017-10-04 08:52] LABS: BASOPHILS 0 % (0-2); EOSINOPHILS 0 % (0-7); HEMATOCRIT 35.4 % (42.0-54.0); HEMOGLOBIN 10.8 g/dL (13.5-17.5); IMMATURE GRANULOCYTES 0.3 % (0-5); MCHC 30.5 g/dL (31.0-37.0); MCV 81.9 fL (80.0-100.0); MEAN PLATELET VOLUME 10.3 fL (7.4-10.4); NEUTROPHILS 82.7 % (40-80); PLATELET COUNT 138 10x3/uL (130-400); RBC 4.32 10x6/uL (4.20-6.10)
[2017-10-04 08:56] LABS: ANION GAP 12.3 mmol/L (8-16); CALCIUM 11.2 mg/dL (8.5-10.1); CARBON DIOXIDE 32.4 mmol/L (21.0-32.0); CREATININE - SERUM 1.2 mg/dL (0.6-1.3)
[2017-10-04 09:10] LABS: POTASSIUM - SERUM 3.7 mmol/L (3.5-5.1)
[2017-10-04 09:13] LABS: WBC 7.2 10x3/uL (4.8-10.8)
[2017-10-04 09:23] LABS: MAGNESIUM - SERUM 1.6 mg/dL (1.8-2.4); PHOSPHOROUS 3.7 mg/dL (2.5-4.9)
[2017-10-05 04:00] VITALS: BP 152/75
[2017-10-05 05:17] LABS: BASOPHILS 0 % (0-2); EOSINOPHILS 0 % (0-7); HEMATOCRIT 34.4 % (42.0-54.0); HEMOGLOBIN 10.3 g/dL (13.5-17.5); IMMATURE GRANULOCYTES 0.4 % (0-5); MCH 24.8 pg (26.0-34.0); MCHC 29.9 g/dL (31.0-37.0); MCV 82.7 fL (80.0-100.0); MEAN PLATELET VOLUME 10.5 fL (7.4-10.4); MONOCYTES 10.6 % (2-11); PLATELET COUNT 129 10x3/uL (130-400); RBC 4.16 10x6/uL (4.20-6.10); RDW 16.9 % (11.5-14.5)
[2017-10-05 05:18] LABS: WBC 5.2 10x3/uL (4.8-10.8)
[2017-10-05 05:48] LABS: ANION GAP 6.5 mmol/L (8-16); CARBON DIOXIDE 35.5 mmol/L (21.0-32.0); CREATININE - SERUM 1.1 mg/dL (0.6-1.3); MAGNESIUM - SERUM 1.7 mg/dL (1.8-2.4); PHOSPHOROUS 3.4 mg/dL (2.5-4.9)
[2017-10-05 08:00] VITALS: BP 149/71
[2017-10-05 11:39] VITALS: BP 144/69
[2017-10-05 15:52] VITALS: BP 120/50
[2017-10-05 20:43] LABS: BASOPHILS 0 % (0-2); EOSINOPHILS 0 % (0-7); HEMATOCRIT 33.7 % (42.0-54.0); HEMOGLOBIN 10.1 g/dL (13.5-17.5); IMMATURE GRANULOCYTES 0.2 % (0-5); LYMPHOCYTES 4.6 % (15-50); MCH 24.8 pg (26.0-34.0); MCV 82.6 fL (80.0-100.0); MEAN PLATELET VOLUME 10.2 fL (7.4-10.4); MONOCYTES 4.4 % (2-11); NEUTROPHILS 90.8 % (40-80); PLATELET COUNT 122 10x3/uL (130-400); RBC 4.08 10x6/uL (4.20-6.10); RDW 16.7 % (11.5-14.5); WBC 5.2 10x3/uL (4.8-10.8)
[2017-10-05 20:58] VITALS: BP 150/70
[2017-10-06] VITALS (12 sets, daily range): BP systolic 127–157; BP diastolic 54–81
[2017-10-06 06:17] LABS: INR 1.08 (0.85-1.17); PROTIME 13.6 SECONDS (11.6-15.0)
[2017-10-06 06:22] LABS: BASOPHILS 0 % (0-2); EOSINOPHILS 0 % (0-7); HEMATOCRIT 33.4 % (42.0-54.0); HEMOGLOBIN 10.2 g/dL (13.5-17.5); IMMATURE GRANULOCYTES 0.4 % (0-5); LYMPHOCYTES 5.9 % (15-50); MCH 24.8 pg (26.0-34.0); MCHC 30.5 g/dL (31.0-37.0); MCV 81.3 fL (80.0-100.0); MEAN PLATELET VOLUME 10.6 fL (7.4-10.4); MONOCYTES 6.6 % (2-11); NEUTROPHILS 87.1 % (40-80); PLATELET COUNT 126 10x3/uL (130-400); RBC 4.11 10x6/uL (4.20-6.10); RDW 16.9 % (11.5-14.5); WBC 5.6 10x3/uL (4.8-10.8)
[2017-10-06 06:35] LABS: CALCIUM 11.5 mg/dL (8.5-10.1); CARBON DIOXIDE 33.6 mmol/L (21.0-32.0); CREATININE - SERUM 1.1 mg/dL (0.6-1.3); MAGNESIUM - SERUM 1.5 mg/dL (1.8-2.4); POTASSIUM - SERUM 4.6 mmol/L (3.5-5.1)
[2017-10-06 06:39] LABS: PHOSPHOROUS 2.3 mg/dL (2.5-4.9)
[2017-10-07] VITALS (9 sets, daily range): BP systolic 135–153; BP diastolic 62–82
[2017-10-07 06:56] LABS: BASOPHILS 0 % (0-2); EOSINOPHILS 0 % (0-7); HEMATOCRIT 37.6 % (42.0-54.0); HEMOGLOBIN 11.3 g/dL (13.5-17.5); IMMATURE GRANULOCYTES 0.4 % (0-5); LYMPHOCYTES 4.2 % (15-50); MCHC 30.1 g/dL (31.0-37.0); MCV 83.2 fL (80.0-100.0); MEAN PLATELET VOLUME 10.6 fL (7.4-10.4); NEUTROPHILS 87.4 % (40-80); PLATELET COUNT 127 10x3/uL (130-400); RBC 4.52 10x6/uL (4.20-6.10); RDW 16.8 % (11.5-14.5); WBC 5.5 10x3/uL (4.8-10.8)
[2017-10-07 07:27] LABS: CALC OSMOLALITY 290 mosm/kg (275-300); CALCIUM 11.8 mg/dL (8.5-10.1); CARBON DIOXIDE 33.5 mmol/L (21.0-32.0); CHLORIDE - SERUM 96 mmol/L (98-107); CREATININE - SERUM 0.9 mg/dL (0.6-1.3); POTASSIUM - SERUM 4.8 mmol/L (3.5-5.1); PRO BNP 8279 pg/mL (0-450); SODIUM 134 mmol/L (136-145); UREA NITROGEN 45 mg/dL (7-18); eGFR NON AFRICAN AMERICAN 87 mL/min (90-120)
[2017-10-07 07:29] LABS: GLUCOSE 300 mg/dL (74-106); MAGNESIUM - SERUM 1.9 mg/dL (1.8-2.4); PHOSPHOROUS 3.4 mg/dL (2.5-4.9)
[2017-10-07 12:17] LABS: FUNGUS STAIN Final report (())
[2017-10-07 19:12] LABS: ACID FAST SMEAR Negative (()); AFB SPECIMEN PROCESSING Concentration (())
[2017-10-08 01:00] VITALS: BP 160/74
[2017-10-08 04:00] VITALS: BP 144/63
[2017-10-08 05:40] LABS: BASOPHILS 0 % (0-2); EOSINOPHILS 0 % (0-7); HEMATOCRIT 37.8 % (42.0-54.0); HEMOGLOBIN 11.3 g/dL (13.5-17.5); IMMATURE GRANULOCYTES 0.5 % (0-5); LYMPHOCYTES 5.5 % (15-50); MCH 24.9 pg (26.0-34.0); MCHC 29.9 g/dL (31.0-37.0); MCV 83.3 fL (80.0-100.0); MEAN PLATELET VOLUME 10.5 fL (7.4-10.4); MONOCYTES 5.7 % (2-11); NEUTROPHILS 88.3 % (40-80); PLATELET COUNT 127 10x3/uL (130-400); RBC 4.54 10x6/uL (4.20-6.10); RDW 16.6 % (11.5-14.5)
[2017-10-08 05:41] LABS: WBC 7.7 10x3/uL (4.8-10.8)
[2017-10-08 05:54] LABS: CALC OSMOLALITY 285 mosm/kg (275-300); CARBON DIOXIDE 35.7 mmol/L (21.0-32.0); CHLORIDE - SERUM 98 mmol/L (98-107); POTASSIUM - SERUM 4.5 mmol/L (3.5-5.1); SODIUM 136 mmol/L (136-145); UREA NITROGEN 50 mg/dL (7-18); eGFR NON AFRICAN AMERICAN 77 mL/min (90-120)
[2017-10-08 05:55] LABS: GLUCOSE 117 mg/dL (74-106)
[2017-10-08 09:14] VITALS: BP 167/49
[2017-10-08 12:23] VITALS: BP 111/68
[2017-10-08 14:57] VITALS: Ht 185.4 cm; Wt 89.2 kg
[2017-10-09 05:48] VITALS: BP 133/74
[2017-10-09 08:02] VITALS: BP 156/72
[2017-10-09 11:16] VITALS: BP 137/62
[2017-10-09 15:01] VITALS: BP 141/69
[2017-10-09 20:00] VITALS: BP 156/65
[2017-10-10] VITALS: BP 152/73
[2017-10-10 04:00] VITALS: BP 150/70
[2017-10-10 08:50] LABS: CALC OSMOLALITY 274 mosm/kg (275-300); CARBON DIOXIDE 36.8 mmol/L (21.0-32.0); CHLORIDE - SERUM 93 mmol/L (98-107); CREATININE - SERUM 0.7 mg/dL (0.6-1.3); GLUCOSE 107 mg/dL (74-106); MAGNESIUM - SERUM 1.8 mg/dL (1.8-2.4); PHOSPHOROUS 3.5 mg/dL (2.5-4.9); POTASSIUM - SERUM 4.7 mmol/L (3.5-5.1); SODIUM 132 mmol/L (136-145); UREA NITROGEN 40 mg/dL (7-18); eGFR NON AFRICAN AMERICAN > 90 mL/min (90-120)
[2017-10-10 09:03] LABS: BASOPHILS 0 % (0-2); EOSINOPHILS 0 % (0-7); HEMOGLOBIN 12.6 g/dL (13.5-17.5); LYMPHOCYTES 7.7 % (15-50); MCH 25.1 pg (26.0-34.0); MCHC 30.7 g/dL (31.0-37.0); MCV 81.8 fL (80.0-100.0); MEAN PLATELET VOLUME 10.5 fL (7.4-10.4); NEUTROPHILS 86.3 % (40-80); PLATELET COUNT 133 10x3/uL (130-400); RBC 5.01 10x6/uL (4.20-6.10); RDW 16.6 % (11.5-14.5); WBC 9.3 10x3/uL (4.8-10.8)
[2017-10-10 09:17] VITALS: BP 140/81
[2017-10-10 10:44] VITALS: BP 108/65
[2017-10-10 15:17] VITALS: BP 134/71
[2017-10-10 19:42] VITALS: BP 138/65
[2017-10-11 00:58] VITALS: BP 145/58
[2017-10-11 04:00] VITALS: BP 150/65
[2017-10-11 07:46] VITALS: BP 135/69
[2017-10-11 10:36] VITALS: BP 136/76
[2017-10-11 16:15] VITALS: BP 131/76
[2017-10-11 20:00] VITALS: BP 150/62
[2017-10-12] VITALS (7 sets, daily range): BP systolic 119–173; BP diastolic 57–69
[2017-10-12 05:56] LABS: BASOPHILS 0 % (0-2); EOSINOPHILS 0 % (0-7); HEMATOCRIT 41.7 % (42.0-54.0); HEMOGLOBIN 12.9 g/dL (13.5-17.5); IMMATURE GRANULOCYTES 1.1 % (0-5); LYMPHOCYTES 8.9 % (15-50); MCH 25.2 pg (26.0-34.0); MCHC 30.9 g/dL (31.0-37.0); MCV 81.6 fL (80.0-100.0); MEAN PLATELET VOLUME 10.3 fL (7.4-10.4); MONOCYTES 11.4 % (2-11); NEUTROPHILS 78.6 % (40-80); PLATELET COUNT 132 10x3/uL (130-400); RBC 5.11 10x6/uL (4.20-6.10); RDW 16.5 % (11.5-14.5); WBC 10.1 10x3/uL (4.8-10.8)
[2017-10-12 06:14] LABS: CARBON DIOXIDE 38.8 mmol/L (21.0-32.0); CHLORIDE - SERUM 95 mmol/L (98-107); MAGNESIUM - SERUM 1.7 mg/dL (1.8-2.4); PHOSPHOROUS 3.2 mg/dL (2.5-4.9); POTASSIUM - SERUM 4.9 mmol/L (3.5-5.1); SODIUM 133 mmol/L (136-145)
[2017-10-12 06:39] LABS: CALC OSMOLALITY 279 mosm/kg (275-300); CREATININE - SERUM 0.9 mg/dL (0.6-1.3); UREA NITROGEN 59 mg/dL (7-18); eGFR NON AFRICAN AMERICAN 87 mL/min (90-120)
[2017-10-12 06:40] LABS: CALCIUM 12.6 mg/dL (8.5-10.1); GLUCOSE 53 mg/dL (74-106)
[2017-10-12 16:58] LABS: FUNGUS CULTURE RESULT 1 Candida parapsilosis (())
[2017-10-13 01:46] VITALS: BP 135/71
[2017-10-13 05:05] VITALS: BP 133/57
[2017-10-13 06:28] LABS: BASOPHILS 0.1 % (0-2); EOSINOPHILS 0 % (0-7); HEMATOCRIT 40.3 % (42.0-54.0); HEMOGLOBIN 12.3 g/dL (13.5-17.5); IMMATURE GRANULOCYTES 0.8 % (0-5); LYMPHOCYTES 5.8 % (15-50); MCH 25.2 pg (26.0-34.0); MCHC 30.5 g/dL (31.0-37.0); MCV 82.4 fL (80.0-100.0); MEAN PLATELET VOLUME 11.2 fL (7.4-10.4); NEUTROPHILS 82.3 % (40-80); PLATELET COUNT 121 10x3/uL (130-400); RBC 4.89 10x6/uL (4.20-6.10); RDW 16.5 % (11.5-14.5); WBC 7.9 10x3/uL (4.8-10.8)
[2017-10-13 06:52] LABS: CARBON DIOXIDE 38.6 mmol/L (21.0-32.0); CHLORIDE - SERUM 93 mmol/L (98-107); MAGNESIUM - SERUM 1.9 mg/dL (1.8-2.4); POTASSIUM - SERUM 5.4 mmol/L (3.5-5.1); SODIUM 133 mmol/L (136-145); UREA NITROGEN 62 mg/dL (7-18); eGFR NON AFRICAN AMERICAN 77 mL/min (90-120)
[2017-10-13 06:55] LABS: CALC OSMOLALITY 291 mosm/kg (275-300); GLUCOSE 234 mg/dL (74-106)
[2017-10-13 06:56] LABS: CALCIUM 12.1 mg/dL (8.5-10.1)
[2017-10-13 08:23] VITALS: BP 111/60
[2017-10-13 11:48] VITALS: BP 135/72
[2017-10-13 17:25] VITALS: BP 142/69
[2017-10-13 20:55] VITALS: BP 129/73
[2017-10-14] VITALS (9 sets, daily range): BP systolic 123–147; BP diastolic 41–74
[2017-10-14 06:27] LABS: BASOPHILS 0 % (0-2); EOSINOPHILS 0 % (0-7); HEMATOCRIT 38.9 % (42.0-54.0); HEMOGLOBIN 11.8 g/dL (13.5-17.5); IMMATURE GRANULOCYTES 0.9 % (0-5); LYMPHOCYTES 6.3 % (15-50); MCH 24.7 pg (26.0-34.0); MCHC 30.3 g/dL (31.0-37.0); MCV 81.4 fL (80.0-100.0); MEAN PLATELET VOLUME 11.1 fL (7.4-10.4); MONOCYTES 10.8 % (2-11); PLATELET COUNT 128 10x3/uL (130-400); RBC 4.78 10x6/uL (4.20-6.10); RDW 16.2 % (11.5-14.5); WBC 8.6 10x3/uL (4.8-10.8)
[2017-10-14 06:56] LABS: CALC OSMOLALITY 283 mosm/kg (275-300); CALCIUM 11.9 mg/dL (8.5-10.1); CARBON DIOXIDE 35.7 mmol/L (21.0-32.0); CHLORIDE - SERUM 92 mmol/L (98-107); CREATININE - SERUM 0.8 mg/dL (0.6-1.3); GLUCOSE 181 mg/dL (74-106); MAGNESIUM - SERUM 1.7 mg/dL (1.8-2.4); POTASSIUM - SERUM 4.7 mmol/L (3.5-5.1); SODIUM 132 mmol/L (136-145); UREA NITROGEN 51 mg/dL (7-18); eGFR NON AFRICAN AMERICAN > 90 mL/min (90-120)
[2017-10-14 08:35] LABS: APTT 24.9 SECONDS (22.8-39.4); INR 0.93 (0.85-1.17)
[2017-10-14 17:26] LABS: PROTEIN - BODY FLUID 1.3 G/DL
[2017-10-14 18:54] LABS: MESOTHELIALS BF 5 %; NEUT - BF 1 %
[2017-10-15] VITALS: BP 122/66
[2017-10-15 04:00] VITALS: BP 121/75
[2017-10-15 06:26] LABS: BASOPHILS 0 % (0-2); EOSINOPHILS 0 % (0-7); HEMATOCRIT 39.1 % (42.0-54.0); HEMOGLOBIN 11.9 g/dL (13.5-17.5); IMMATURE GRANULOCYTES 0.7 % (0-5); LYMPHOCYTES 1.9 % (15-50); MCH 24.8 pg (26.0-34.0); MCHC 30.4 g/dL (31.0-37.0); MCV 81.6 fL (80.0-100.0); MEAN PLATELET VOLUME 10.8 fL (7.4-10.4); NEUTROPHILS 92.4 % (40-80); PLATELET COUNT 123 10x3/uL (130-400); RBC 4.79 10x6/uL (4.20-6.10); RDW 16.3 % (11.5-14.5); WBC 14.5 10x3/uL (4.8-10.8)
[2017-10-15 06:41] LABS: CALC OSMOLALITY 286 mosm/kg (275-300); CALCIUM 11.5 mg/dL (8.5-10.1); CARBON DIOXIDE 36.5 mmol/L (21.0-32.0); CHLORIDE - SERUM 92 mmol/L (98-107); MAGNESIUM - SERUM 1.7 mg/dL (1.8-2.4); POTASSIUM - SERUM 4.8 mmol/L (3.5-5.1); SODIUM 130 mmol/L (136-145); UREA NITROGEN 55 mg/dL (7-18); eGFR NON AFRICAN AMERICAN 77 mL/min (90-120)
[2017-10-15 06:43] LABS: GLUCOSE 291 mg/dL (74-106)
[2017-10-15 08:36] VITALS: BP 115/85
[2017-10-15 11:34] VITALS: BP 109/56
[2017-10-15 15:42] VITALS: BP 112/81
[2017-10-15 17:10] LABS: ACID FAST SMEAR Negative (()); AFB SPECIMEN PROCESSING Not Indicated (())
[2017-10-15 19:00] VITALS: BP 133/57
[2017-10-16] VITALS: BP 142/61
[2017-10-16 03:51] VITALS: BP 131/71
[2017-10-16 06:02] LABS: BASOPHILS 0 % (0-2); EOSINOPHILS 0 % (0-7); HEMATOCRIT 36.6 % (42.0-54.0); HEMOGLOBIN 11.5 g/dL (13.5-17.5); IMMATURE GRANULOCYTES 0.5 % (0-5); LYMPHOCYTES 3.5 % (15-50); MCH 25.2 pg (26.0-34.0); MCHC 31.4 g/dL (31.0-37.0); MCV 80.1 fL (80.0-100.0); MEAN PLATELET VOLUME 11.3 fL (7.4-10.4); MONOCYTES 2.1 % (2-11); NEUTROPHILS 93.9 % (40-80); PLATELET COUNT 120 10x3/uL (130-400); RBC 4.57 10x6/uL (4.20-6.10); RDW 16.2 % (11.5-14.5); WBC 13.8 10x3/uL (4.8-10.8)
[2017-10-16 06:19] LABS: ANION GAP 9.9 mmol/L (8-16); CALCIUM 10.2 mg/dL (8.5-10.1); CARBON DIOXIDE 32.3 mmol/L (21.0-32.0); CREATININE - SERUM 1.1 mg/dL (0.6-1.3); MAGNESIUM - SERUM 1.6 mg/dL (1.8-2.4); POTASSIUM - SERUM 5.2 mmol/L (3.5-5.1)
[2017-10-16 07:51] VITALS: BP 137/68
[2017-10-16 11:21] VITALS: BP 139/77
[2017-10-16 15:07] VITALS: BP 141/75
[2017-10-16 20:00] VITALS: BP 128/72
[2017-10-17] VITALS: BP 146/84
[2017-10-17 04:00] VITALS: BP 132/75
[2017-10-17 06:39] LABS: BASOPHILS 0 % (0-2); EOSINOPHILS 0 % (0-7); HEMATOCRIT 38.8 % (42.0-54.0); HEMOGLOBIN 12.6 g/dL (13.5-17.5); IMMATURE GRANULOCYTES 0.5 % (0-5); LYMPHOCYTES 2.6 % (15-50); MCH 25.7 pg (26.0-34.0); MCHC 32.5 g/dL (31.0-37.0); MONOCYTES 6.3 % (2-11); NEUTROPHILS 90.6 % (40-80); PLATELET COUNT 130 10x3/uL (130-400); RBC 4.91 10x6/uL (4.20-6.10); RDW 16.3 % (11.5-14.5)
[2017-10-17 06:44] LABS: WBC 18.7 10x3/uL (4.8-10.8)
[2017-10-17 06:55] LABS: ANION GAP 11.7 mmol/L (8-16); CALCIUM 10.1 mg/dL (8.5-10.1); CARBON DIOXIDE 31.5 mmol/L (21.0-32.0); CREATININE - SERUM 1.1 mg/dL (0.6-1.3); MAGNESIUM - SERUM 1.9 mg/dL (1.8-2.4); POTASSIUM - SERUM 5.2 mmol/L (3.5-5.1)
[2017-10-17 09:14] VITALS: BP 142/92
[2017-10-17 11:40] VITALS: BP 143/59
[2017-10-17 12:10] LABS: FUNGUS STAIN Final report (())
[2017-10-17 15:36] VITALS: BP 158/70
[2017-10-17 17:11] LABS: AEROBE ID Final report (()); RESULT 1 Yeast isolated. (())
[2017-10-17 20:00] VITALS: BP 150/81
[2017-10-18] VITALS: BP 141/66
[2017-10-18 04:00] VITALS: BP 119/60
[2017-10-18 07:33] LABS: BASOPHILS 0 % (0-2); EOSINOPHILS 0 % (0-7); HEMATOCRIT 37.7 % (42.0-54.0); IMMATURE GRANULOCYTES 0.6 % (0-5); MCH 25.5 pg (26.0-34.0); MCHC 31.8 g/dL (31.0-37.0); MONOCYTES 2.9 % (2-11); NEUTROPHILS 90.5 % (40-80); RBC 4.71 10x6/uL (4.20-6.10); RDW 16.3 % (11.5-14.5)
[2017-10-18 07:37] LABS: PLATELET COUNT 87 10x3/uL (130-400); WBC 9.5 10x3/uL (4.8-10.8)
[2017-10-18 07:42] LABS: CALC OSMOLALITY 285 mosm/kg (275-300); CALCIUM 9.6 mg/dL (8.5-10.1); CARBON DIOXIDE 35.4 mmol/L (21.0-32.0); CHLORIDE - SERUM 91 mmol/L (98-107); CREATININE - SERUM 0.9 mg/dL (0.6-1.3); POTASSIUM - SERUM 4.8 mmol/L (3.5-5.1); SODIUM 128 mmol/L (136-145); UREA NITROGEN 54 mg/dL (7-18); eGFR NON AFRICAN AMERICAN 87 mL/min (90-120)
[2017-10-18 07:51] LABS: GLUCOSE 348 mg/dL (74-106)
[2017-10-18 07:59] VITALS: BP 126/76
[2017-10-18 08:22] LABS: PLATELET ESTIMATE DECREASED
[2017-10-18 11:27] VITALS: BP 132/72
[2017-10-18 15:22] VITALS: BP 135/63
[2017-10-18 20:00] VITALS: BP 140/68
[2017-10-19] VITALS: BP 102/64
[2017-10-19 04:00] VITALS: BP 114/59
[2017-10-19 05:36] LABS: BASOPHILS 0 % (0-2); EOSINOPHILS 0 % (0-7); HEMATOCRIT 37.3 % (42.0-54.0); HEMOGLOBIN 11.6 g/dL (13.5-17.5); IMMATURE GRANULOCYTES 0.5 % (0-5); LYMPHOCYTES 6.5 % (15-50); MCH 24.9 pg (26.0-34.0); MCHC 31.1 g/dL (31.0-37.0); MCV 80.2 fL (80.0-100.0); MEAN PLATELET VOLUME 10.6 fL (7.4-10.4); MONOCYTES 1.6 % (2-11); NEUTROPHILS 91.4 % (40-80); PLATELET COUNT 87 10x3/uL (130-400); RBC 4.65 10x6/uL (4.20-6.10); RDW 16.3 % (11.5-14.5); WBC 9.9 10x3/uL (4.8-10.8)
[2017-10-19 06:08] LABS: ALBUMIN 2.2 g/dL (3.4-5.0); ALKALINE PHOSPHATASE 83 U/L (46-116); ALT (SGPT) 8 U/L (10-68); BILIRUBIN - TOTAL 0.42 mg/dL (0.2-1.3); CALC OSMOLALITY 282 mosm/kg (275-300); CALCIUM 9.4 mg/dL (8.5-10.1); CHLORIDE - SERUM 91 mmol/L (98-107); CREATININE - SERUM 0.7 mg/dL (0.6-1.3); GLUCOSE 317 mg/dL (74-106); POTASSIUM - SERUM 4.9 mmol/L (3.5-5.1); PROTEIN - SERUM 5.7 g/dL (6.4-8.2); SODIUM 128 mmol/L (136-145); UREA NITROGEN 51 mg/dL (7-18); eGFR NON AFRICAN AMERICAN > 90 mL/min (90-120)
[2017-10-19 08:30] VITALS: BP 126/79
[2017-10-19 11:04] VITALS: BP 120/67
[2017-10-19 16:52] VITALS: BP 126/61
[2017-10-19 20:05] VITALS: BP 153/82
[2017-10-20] VITALS: BP 135/63
[2017-10-20 04:00] VITALS: BP 130/69
[2017-10-20 08:29] VITALS: BP 118/62
[2017-10-20 11:45] VITALS: BP 119/69
[2017-10-20 20:00] VITALS: BP 135/75
[2017-10-21 02:57] VITALS: BP 129/60
[2017-10-21 05:27] VITALS: BP 124/68
[2017-10-21 08:27] VITALS: BP 161/79
[2017-10-21 12:15] VITALS: BP 125/66
[2017-10-21 15:42] VITALS: BP 135/73
[2017-10-21 20:00] VITALS: BP 163/77
[2017-10-22 01:00] VITALS: BP 124/65
[2017-10-22 04:00] VITALS: BP 141/72
[2017-10-22 08:53] VITALS: BP 143/83
[2017-10-22 11:43] VITALS: BP 179/65
[2017-10-22 15:17] VITALS: BP 115/85
[2017-10-22 20:00] VITALS: BP 137/75
[2017-10-23] VITALS: BP 100/60
[2017-10-23 04:00] VITALS: BP 136/52
[2017-10-23 08:44] VITALS: BP 136/65
[2017-10-23 11:42] VITALS: BP 160/82
[2017-10-23 15:23] VITALS: BP 154/67
[2017-10-23 20:00] VITALS: BP 141/82
[2017-10-24] VITALS: BP 143/71
[2017-10-24 04:00] VITALS: BP 141/87
[2017-10-24 04:46] LABS: BASOPHILS 0 % (0-2); EOSINOPHILS 0 % (0-7); HEMATOCRIT 37.8 % (42.0-54.0); HEMOGLOBIN 12.3 g/dL (13.5-17.5); IMMATURE GRANULOCYTES 0.6 % (0-5); LYMPHOCYTES 5.4 % (15-50); MCH 25.3 pg (26.0-34.0); MCHC 32.5 g/dL (31.0-37.0); MCV 77.6 fL (80.0-100.0); MONOCYTES 6.1 % (2-11); NEUTROPHILS 87.9 % (40-80); RBC 4.87 10x6/uL (4.20-6.10); RDW 16.5 % (11.5-14.5); WBC 7.7 10x3/uL (4.8-10.8)
[2017-10-24 04:53] LABS: PLATELET COUNT 62 10x3/uL (130-400)
[2017-10-24 05:23] LABS: CALC OSMOLALITY 272 mosm/kg (275-300); CARBON DIOXIDE 31.2 mmol/L (21.0-32.0); CHLORIDE - SERUM 90 mmol/L (98-107); CREATININE - SERUM 0.5 mg/dL (0.6-1.3); MAGNESIUM - SERUM 2.3 mg/dL (1.8-2.4); PHOSPHOROUS 2.2 mg/dL (2.5-4.9); POTASSIUM - SERUM 5.3 mmol/L (3.5-5.1); SODIUM 125 mmol/L (136-145); UREA NITROGEN 50 mg/dL (7-18); eGFR NON AFRICAN AMERICAN > 90 mL/min (90-120)
[2017-10-24 05:24] LABS: GLUCOSE 249 mg/dL (74-106)
[2017-10-24 08:19] VITALS: BP 94/67
[2017-10-24 12:00] VITALS: BP 124/60
[2017-10-24 15:00] VITALS: BP 125/68
[2017-10-24 20:50] VITALS: BP 130/70
[2017-10-25 01:02] VITALS: BP 138/72
[2017-10-25 05:30] VITALS: BP 133/64
[2017-10-25 07:43] VITALS: BP 143/74
[2017-10-25 15:50] VITALS: BP 123/66
[2017-10-25 20:00] VITALS: BP 142/63
[2017-10-26] VITALS: BP 155/107
[2017-10-26 08:02] VITALS: BP 152/87
[2017-10-26] MEDS ORDERED: BROVANA15 MCG/2 M INH (09:34)
[2017-10-26] MEDS ORDERED: XOPENEX 0.0.63 MG/3 UPD (09:36)
[2017-10-26] MEDS ORDERED: ATROVENT 0.02%2.5 ML UPD (09:36)
[2017-10-26] MEDS ORDERED: LORAZEPAM1 MG/0.5 M SL (09:37)
[2017-10-26] MEDS ORDERED: MORPHINE S10 MG/5 ML PO (09:38)
[2017-10-26] MEDS ORDERED: LEVEMIR100 U/M1 SC (09:40)
[2017-10-26] MEDS ORDERED: HUMULIN R100 U/ML SC (09:40)
[2017-10-26] MEDS ORDERED: SYNTHROID200 MC1 PO (09:41)
[2017-11-03 09:46] LABS: FUNGUS MYCOLOGY CULTURE Final report (())
[2017-11-10 11:19] LABS: FUNGUS MYCOLOGY CULTURE Final report (())
== END 2017-10-26 15:08 | disposition home health service (06) | DRG 180 ==
LOC: D.ER 10:20 → D.M2 14:28 → D.EDHOLD 14:28 → D.M2 15:06 → D.SDCHOLD 10-03 16:17 → D.M2 10-03 16:17
PROVIDERS: Emergency Medicine; Family Medicine; Internal Medicine Pulmonary Disease; Radiology Diagnostic Radiology
PROC: 0BD98ZX Extraction of Lingula Bronchus, Via Natural or Artificial Opening Endoscopic, Diagnostic (ICD-10-PCS; 2017-10-06)
PROC: 0B9B8ZX Drainage of Left Lower Lobe Bronchus, Via Natural or Artificial Opening Endoscopic, Diagnostic (ICD-10-PCS; 2017-10-06)
PROC: 0B948ZX Drainage of Right Upper Lobe Bronchus, Via Natural or Artificial Opening Endoscopic, Diagnostic (ICD-10-PCS; 2017-10-06)
PROC: 0B988ZX Drainage of Left Upper Lobe Bronchus, Via Natural or Artificial Opening Endoscopic, Diagnostic (ICD-10-PCS; 2017-10-06)
PROC: 0B918ZX Drainage of Trachea, Via Natural or Artificial Opening Endoscopic, Diagnostic (ICD-10-PCS; 2017-10-06)
PROC: 0B958ZX Drainage of Right Middle Lobe Bronchus, Via Natural or Artificial Opening Endoscopic, Diagnostic (ICD-10-PCS; 2017-10-06)
PROC: 0B938ZX Drainage of Right Main Bronchus, Via Natural or Artificial Opening Endoscopic, Diagnostic (ICD-10-PCS; 2017-10-06)
PROC: 0B978ZX Drainage of Left Main Bronchus, Via Natural or Artificial Opening Endoscopic, Diagnostic (ICD-10-PCS; 2017-10-06)
PROC: 0B968ZX Drainage of Right Lower Lobe Bronchus, Via Natural or Artificial Opening Endoscopic, Diagnostic (ICD-10-PCS; 2017-10-06)
PROC: 0BB98ZX Excision of Lingula Bronchus, Via Natural or Artificial Opening Endoscopic, Diagnostic (ICD-10-PCS; principal; 2017-10-06 12:20)
PROC: 02HV33Z Insertion of Infusion Device into Superior Vena Cava, Percutaneous Approach (ICD-10-PCS; 2017-10-12)
PROC: B5181ZA Fluoroscopy of Superior Vena Cava using Low Osmolar Contrast, Guidance (ICD-10-PCS; 2017-10-12)
PROC: 0W993ZZ Drainage of Right Pleural Cavity, Percutaneous Approach (ICD-10-PCS; 2017-10-14)
PROC: 5A09557 Assistance with Respiratory Ventilation, Greater than 96 Consecutive Hours, Continuous Positive Airway Pressure (ICD-10-PCS; 2017-10-16)
DX: C34.92 Malignant neoplasm of unspecified part of left bronchus or lung (principal); J96.01 Acute respiratory failure with hypoxia; I50.33 Acute on chronic diastolic (congestive) heart failure; G93.41 Metabolic encephalopathy; J96.02 Acute respiratory failure with hypercapnia; J15.6 Pneumonia due to other Gram-negative bacteria; J69.0 Pneumonitis due to inhalation of food and vomit; J15.212 Pneumonia due to Methicillin resistant Staphylococcus aureus; J44.1 Chronic obstructive pulmonary disease with (acute) exacerbation; J44.0 Chronic obstructive pulmonary disease with (acute) lower respiratory infection; I13.0 Hypertensive heart and chronic kidney disease with heart failure and stage 1 through stage 4 chronic kidney disease, or unspecified chronic kidney disease; I42.9 Cardiomyopathy, unspecified; N17.9 Acute kidney failure, unspecified; J93.9 Pneumothorax, unspecified; J90 Pleural effusion, not elsewhere classified; E87.1 Hypo-osmolality and hyponatremia; D86.0 Sarcoidosis of lung; Z66 Do not resuscitate; Z99.81 Dependence on supplemental oxygen; G47.33 Obstructive sleep apnea (adult) (pediatric); E87.5 Hyperkalemia; I27.20 Pulmonary hypertension, unspecified; N18.9 Chronic kidney disease, unspecified; E11.22 Type 2 diabetes mellitus with diabetic chronic kidney disease; E11.21 Type 2 diabetes mellitus with diabetic nephropathy; E11.40 Type 2 diabetes mellitus with diabetic neuropathy, unspecified; I25.10 Atherosclerotic heart disease of native coronary artery without angina pectoris; E83.42 Hypomagnesemia; E78.5 Hyperlipidemia, unspecified; E03.9 Hypothyroidism, unspecified; D69.6 Thrombocytopenia, unspecified; Z74.09 Other reduced mobility; E83.52 Hypercalcemia; N40.0 Benign prostatic hyperplasia without lower urinary tract symptoms; D50.9 Iron deficiency anemia, unspecified; E66.01 Morbid (severe) obesity due to excess calories; Z68.27 Body mass index [BMI] 27.0-27.9, adult; I07.1 Rheumatic tricuspid insufficiency; K59.00 Constipation, unspecified; R63.0 Anorexia; K74.60 Unspecified cirrhosis of liver; F32.9 Major depressive disorder, single episode, unspecified; I48.2 Chronic atrial fibrillation; E11.51 Type 2 diabetes mellitus with diabetic peripheral angiopathy without gangrene; Z95.0 Presence of cardiac pacemaker; Z87.891 Personal history of nicotine dependence; Z95.5 Presence of coronary angioplasty implant and graft